=== PATIENT | male | born 1960 | race Caucasian/White ===

== ENCOUNTER 2017-03-28 15:15 | Inpatient (IN) | payer BC ==
[2017-03-28] MEDS ORDERED: Sodium Chloride 0.9% 10 ML Syringe FLUSH PRN (15:34)
[2017-03-28] MEDS ORDERED: Sodium Chloride 0.9% 2.5 ML Syringe FLUSH PRN (15:34)
[2017-03-28] MEDS ORDERED: Morphine 2 MG/ML Syringe IVPUSH ONE (15:35)
--- NOTE | 2017-03-28 15:37 | EDM.PDOC ---
ED HPI GENERAL MEDICAL PROBLEM - General Chief Complaint: Lower Extremity Injury/Pain Stated Complaint: PAIN LT KNEE Time Seen by Provider: 03/28/17 15:31 Source of Information: Reports: Patient History Limitations: Reports: No Limitations - History of Present Illness INITIAL COMMENTS - FREE TEXT/NARRATIVE: History of present illness: []Patient felt something sticking in his left knee and try to pull it out a few days ago knee has become red hot and tender. He denies having any fevers or chills and is ambulatory with pain. Patient's been told he has high blood pressure not want take meds for it. His currently has elevated blood pressure of 190's/130s but denies any headache, chest pain or change in vision. Review of systems: As per history of present illness and below otherwise all systems reviewed and negative. Past medical history: As per history of present illness and as reviewed below otherwise noncontributory. Surgical history: As per history of present illness and as reviewed below otherwise noncontributory. Social history: No reported history of drug or alcohol abuse. Family history: As per history of present illness and as reviewed below otherwise noncontributory. Physical exam: General: Well developed, well nourished in NAD HEENT: Atraumatic, normocephalic, pupils reactive, negative for conjunctival pallor or scleral icterus, mucous membranes moist, throat clear, neck supple, nontender, trachea midline. Lungs: Clear to auscultation, breath sounds equal bilaterally, chest nontender. Heart: S1S2, regular, negative for clicks, rubs, or JVD. Abdomen: Soft, nondistended, nontender. Negative for masses or hepatosplenomegaly. Negative for costovertebral tenderness. Pelvis: Stable nontender. Genitourinary: Deferred. Rectal: Deferred. Extremities: Atraumatic, negative for cords or calf pain. Neurovascular unremarkable. Neuro: Awake, alert, oriented. Cranial nerves II through XII unremarkable. Cerebellum unremarkable. Motor and sensory unremarkable throughout. Exam nonfocal. Diagnostics: []X-ray labs and blood cultures done done Therapeutics: []Pain meds Impression: []Left knee cellulitis with possible early septic arthritis, uncontrolled hypertension Plan: []Dr. Quijano was consulted and will evaluate this patient a deep. Definitive disposition and diagnosis as appropriate pending reevaluation and review of above. left leg Pain Score (Numeric/FACES): 7 - Related Data Allergies Allergy/AdvReac Type Severity Reaction Status Date / Time No Known Allergies Allergy Verified 03/28/17 15:26 Home Meds: Home Meds . [No Known Home Meds] 03/28/17 [History] Past Medical History - Past Health History Medical/Surgical History: Denies Medical/Surgical History HEENT History: Reports: None Cardiovascular History: Reports: Hypertension Respiratory History: Reports: None Genitourinary History: Reports: None Musculoskeletal History: Reports: None Neurological History: Reports: None Psychiatric History: Reports: None Endocrine/Metabolic History: Reports: None Hematologic History: Reports: None Other Immunologic History: Spleen Removed in 2011 Oncologic (Cancer) History: Reports: None Dermatologic History: Reports: None - Infectious Disease History Infectious Disease History: Reports: Chicken Pox - Past Surgical History Head Surgeries/Procedures: Reports: None GI Surgical History: Reports: Other (See Below) Male Surgical History: Reports: None Social & Family History - Family History Family Medical History: Noncontributory - Tobacco Use Smoking Status *Q: Current Every Day Smoker Years of Tobacco use: 30 Packs/Tins Daily: 0.5 Used Tobacco, but Quit: No - Caffeine Use Caffeine Use: Reports: Coffee, Soda - Recreational Drug Use Recreational Drug Use: No Review of Systems - Review of Systems Review Of Systems: See Below (See history of present illness) ED EXAM, GENERAL - Physical Exam Exam: See Below (See history of present illness) Course - Vital Signs Last Recorded V/S: Last Vital Signs Temp 98.8 F 03/29/17 04:30 Pulse 90 03/29/17 04:30 Resp 20 03/29/17 04:30 BP 168/88 H 03/29/17 04:30 Pulse Ox 96 03/29/17 04:30 - Orders/Labs/Meds Orders: Active Orders 24 hr Category Date Time Status Patient Status [ADT] Stat ADT 03/28/17 17:15 Active CULTURE BLOOD [BC] Stat Lab 03/28/17 15:44 Received CULTURE BLOOD [BC] Stat Lab 03/28/17 15:49 Received Sodium Chloride 0.9% [Saline Flush] Med 03/28/17 15:34 Active 10 ml FLUSH ASDIRECTED PRN Sodium Chloride 0.9% [Saline Flush] Med 03/28/17 15:34 Active 2.5 ml FLUSH ASDIRECTED PRN Blood Culture x2 Reflex Set [OM.PC] Stat Oth 03/28/17 15:34 Ordered Saline Lock Insert [OM.PC] Stat Ot 03/28/17 15:34 Ordered Medication Orders Acetaminophen (Tylenol) 650 mg PO Q4H PRN PRN Reason: Pain (Mild 1-3)/fever Bisacodyl (Dulcolax) 5 mg PO DAILY PRN PRN Reason: Constipation Docusate Sodium (Colace) 100 mg PO BID PRN PRN Reason: Constipation Enoxaparin Sodium (Lovenox) 40 mg SUBCUT DAILY [facility] Vancomycin HCl 1.5 gm/ Sodium (Chloride) 500 mls @ 333.333 mls/hr IV Q12H [facility] Last Admin: 03/29/17 02:31 Dose: 333.333 mls/hr Lisinopril (Prinivil) 10 mg PO BID [facility] Last Admin: 03/28/17 21:02 Dose: 10 mg Ondansetron HCl (Zofran Odt) 4 mg PO Q4H PRN PRN Reason: nausea, able to take PO Sodium Chloride (Saline Flush) 10 ml FLUSH ASDIRECTED PRN PRN Reason: Keep Vein Open Last Admin: 03/28/17 15:49 Dose: 10 ml Sodium Chloride (Saline Flush) 2.5 ml FLUSH ASDIRECTED PRN PRN Reason: Keep Vein Open Last Admin: 03/28/17 15:49 Dose: 2.5 ml Temazepam (Restoril) 15 mg PO BEDTIME PRN PRN Reason: Sleep Vancomycin HCl (Pharmacy To Dose - Vancomycin) 1 dose .XX ASDIRECTED [facility] Labs: Laboratory Tests 03/28/17 03/28/17 Range/Units 15:44 15:44 WBC 18.19 H (4.0-11.0) K/uL RBC 5.55 (4.50-5.90) M/uL Hgb 16.0 (13.0-17.0) g/dL Hct 46.9 (38.0-50.0) % MCV 84.5 (80.0-98.0) fL MCH 28.8 (27.0-32.0) pg MCHC 34.1 (31.0-37.0) g/dL RDW Std Deviation 42.6 (28.0-62.0) fl RDW Coeff of Whit 14 (11.0-15.0) % Plt Count 354 (150-400) K/uL MPV 9.40 (7.40-12.00) fL Neut % (Auto) 72.2 (48.0-80.0) % Lymph % (Auto) 16.3 (16.0-40.0) % [place] % (Auto) 10.7 (0.0-15.0) % Eos % (Auto) 0.5 (0.0-7.0) % Baso % (Auto) 0.3 (0.0-1.5) % Neut # (Auto) 13.1 H (1.4-5.7) K/uL Lymph # (Auto) 3.0 H (0.6-2.4) K/uL [place] # (Auto) 2.0 H (0.0-0.8) K/uL Eos # (Auto) 0.1 (0.0-0.7) K/uL Baso # (Auto) 0.1 (0.0-0.1) K/uL Nucleated RBC % 0.0 /100WBC Nucleated RBCs # 0 K/uL ESR 5 (0-19) mm/hr Sodium 137 (136-146) mmol/L Potassium 4.4 (3.5-5.1) mmol/L Chloride 100 (98-110) mmol/L Carbon Dioxide 26 (21-31) mmol/L BUN 13 (6.0-23.0) mg/dL Creatinine 1.3 (0.6-1.5) mg/dL Est Cr Clr Drug Dosing 58.61 mL/min Estimated GFR (MDRD) 56.9 ml/min Glucose 139 H (60-110) mg/dL Calcium 9.9 (8.8-10.8) mg/dL Total Bilirubin 0.5 (0.1-1.5) mg/dL AST 16 (5-40) IU/L ALT 25 (8-54) IU/L Alkaline Phosphatase 121 (40-150) C-Reactive Protein 2.98 H (0.0-0.5) mg/dL Total Protein 7.7 (6.0-8.0) g/dL Albumin 4.2 (3.5-5.0) g/dL Globulin 3.5 (2.0-3.5) g/dL Albumin/Globulin Ratio 1.20 Meds: Medications Generic Name Dose Route Start Last Admin Trade Name Gina PRN Reason Stop Dose Admin Acetaminophen 650 mg 03/28/17 18:01 Tylenol PO Q4H PRN Pain (Mild 1-3)/fever Bisacodyl 5 mg 03/28/17 18:01 Dulcolax PO DAILY PRN Constipation Docusate Sodium 100 mg 03/28/17 18:01 Colace PO BID PRN Constipation Enoxaparin Sodium 40 mg 03/29/17 09:00 Lovenox SUBCUT DAILY [facility] Vancomycin HCl 1.5 gm/ Sodium 500 mls @ 333.333 mls/hr 03/29/17 02:00 02:31 Chloride IV 333.333 mls/hr Q12H [facility] Administration Lisinopril 10 mg 03/28/17 21:00 03/28/17 21:02 Prinivil PO 10 mg BID [facility] Administration Ondansetron HCl 4 mg 03/28/17 18:01 Zofran Odt PO Q4H PRN nausea, able to take PO Sodium Chloride 10 ml 03/28/17 15:34 03/28/17 15:49 Saline Flush FLUSH 10 ml ASDIRECTED PRN Administration Keep Vein Open Sodium Chloride 2.5 ml 03/28/17 15:34 03/28/17 15:49 Saline Flush FLUSH 2.5 ml ASDIRECTED PRN Administration Keep Vein Open Temazepam 15 mg 03/28/17 18:01 Restoril PO BEDTIME PRN Sleep Vancomycin HCl 1 dose 03/28/17 18:15 Pharmacy To Dose - Vancomycin .XX ASDIRECTED [facility] Discontinued Medications Generic Name Dose Route Start Last Admin Trade Name Gina PRN Reason Stop Dose Admin Diphtheria/Tetanus/Acell Pertussis 0.5 ml 03/28/17 18:04 Adacel IM 03/28/17 18:05 .ONCE ONE Vancomycin HCl 1 gm/ Sodium 250 mls @ 250 mls/hr 03/28/17 16:28 03/28/17 16: 47 Chloride IV 03/28/17 17:27 250 mls/hr ONETIME ONE Administration Metoprolol Tartrate 5 mg 03/28/17 16:01 03/28/17 16:10 Lopressor IVPUSH 03/28/17 16:02 5 mg ONETIME ONE Administration Morphine Sulfate 4 mg 03/28/17 15:35 03/28/17 15:49 Morphine IVPUSH 03/28/17 15:36 4 mg ONETIME ONE Administration Departure - Departure Time of Disposition: 17:50 Disposition: Admitted As Inpatient 65 Condition: Good Clinical Impression: Cellulitis of left knee - Discharge Information - My Orders Last 24 Hours: My Active Orders 03/28/17 15:34 Sodium Chloride 0.9% [Saline Flush] 10 ml FLUSH ASDIRECTED PRN Sodium Chloride 0.9% [Saline Flush] 2.5 ml FLUSH ASDIRECTED PRN Blood Culture x2 Reflex Set [OM.PC] Stat Saline Lock Insert [OM.PC] Stat 03/28/17 15:44 CULTURE BLOOD [BC] Stat 03/28/17 15:49 CULTURE BLOOD [BC] Stat 03/28/17 17:15 Patient Status [ADT] Stat - Assessment/Plan Last 24 Hours: My Active Orders 03/28/17 15:34 Sodium Chloride 0.9% [Saline Flush] 10 ml FLUSH ASDIRECTED PRN Sodium Chloride 0.9% [Saline Flush] 2.5 ml FLUSH ASDIRECTED PRN Blood Culture x2 Reflex Set [OM.PC] Stat Saline Lock Insert [OM.PC] Stat 03/28/17 15:44 CULTURE BLOOD [BC] Stat 03/28/17 15:49 CULTURE BLOOD [BC] Stat 03/28/17 17:15 Patient Status [ADT] Stat
[2017-03-28] MEDS ORDERED: Metoprolol Tartrate 5 MG in Sodium Chloride 0.9% 50 ML IV ONE (15:51)
[2017-03-28] MEDS ORDERED: Metoprolol Tartrate 5 MG/5 ML SDV IVPUSH ONE (16:01)
--- NOTE | 2017-03-28 17:21 | CR ---
EXAM DATE: 03/28/17 PATIENT'S AGE: 56 Patient: MENA JOHNSON Facility: [place], [place] Site . Site : 1960 Study: XRay Knee [id number] 4:32:15 PM Ordering Physician: Alfonso Carranza Final Report: INDICATION: Pain, redness and swelling. COMPARISON: none TECHNIQUE: Three view left knee FINDINGS: There is localized soft tissue swelling within the anterior medial region. There is no evidence of a radiopaque foreign body. The bones are anatomically aligned. There is no evidence of fracture, erosion or intrinsic bone lesion. There is an air crescent within the medial joint space. This may reflect recent forceful joint distraction. IMPRESSION: No fracture identified. Soft tissue swelling within the prepatellar region and air crescent sign noted which may indicate recent dated joint destruction Dictated by Nikos Henriquez MD @ Mar 28 2017 4:40PM (Electronic Signature) Report Signed by Proxy. TRISTEN
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
[2017-03-28] MEDS ORDERED: Docusate Sodium 100 MG Cap PO PRN (18:01)
[2017-03-28] MEDS ORDERED: Bisacodyl 5 MG Tab PO PRN (18:01)
[2017-03-28] MEDS ORDERED: Ondansetron 4 MG Tab.DIS PO PRN (18:01)
[2017-03-28] MEDS ORDERED: Temazepam 15 MG Cap PO PRN (18:01)
[2017-03-28] MEDS ORDERED: Diphtheria,Pertussis(Acell),Tetanus Vaccine 0.5 ML Syringe IM ONE (18:04)
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
[2017-03-28] MEDS: Lisinopril 10 MG Tab PO SCH (21:02)
--- NOTE | 2017-03-28 23:22 | CONS ---
DATE OF CONSULTATION: DATE OF : 1960 PRIMARY CARE PHYSICIAN: None PCP REASON FOR CONSULT: Left knee swelling. HISTORY OF PRESENT ILLNESS: The patient is a 56-year-old male who began having increased swelling in his left knee approximately 3 days prior. He cannot recall a specific injury; however, he states that he does do a lot of kneeling and crawling on his knees. He noticed a small pustule over the anterior aspect of his knee. Over the past day, he states that the swelling has increased along with the pain. He has no previous history of knee pain or injury. He denies any fever or chills. He denies distal paralysis or paresthesias. PAST MEDICAL HISTORY: Hypertension. PAST SURGICAL HISTORY: Hernia repair. MEDICATIONS: None. SOCIAL HISTORY: He admits to daily tobacco use. He denies recreational drug use. FAMILY HISTORY: Noncontributory. REVIEW OF SYSTEMS: He denies recent fever, chills, cough, shortness of breath, chest pain, nausea, or vomiting. PHYSICAL EXAMINATION: VITAL SIGNS: Blood pressure 162/107, pulse 80, respirations 18, O2 saturation is 98% on room air. GENERAL: This is alert, well-nourished male who is lying on ER stretcher in minimal distress. HEENT: Head is normocephalic, atraumatic. NECK: Supple. CHEST: Showed symmetrical excursions, unlabored. HEART: Regular rate. EXTREMITIES: Exam of the left knee shows obvious swelling in the prepatellar bursa region. Mild erythema is present. There is a small pustule noted over the patella tendon. No fluctuance is noted. Range of motion of the knee is 0- 115 degrees. He is stable to varus and valgus stressing. His patella tracked centrally. No joint effusion is noted. He has no calf tenderness. Anterior tib, EHL, gastroc strength is 5/5. Dorsalis pedis pulses 2+. Sensation is grossly intact throughout the lower extremity. He has no pain with passive hip motion. IMAGING: X-rays of the left knee were reviewed. This does show localized soft tissue swelling in the prepatellar region. An air crescent is present within the medial joint space, which may reflect a recent forceful joint distraction. This does not appear to be due to a gas-forming organism. ASSESSMENT: Left prepatellar bursitis. PLAN: At this time, the patient will be admitted by the hospitalist for IV antibiotics. We will follow him clinically. At this time, no surgical intervention is indicated. If his symptoms increase, we will plan on further discussion of surgical intervention. Blood cultures were also obtained in the emergency room. BLAKE ADAMS /[id number]
[2017-03-29] MEDS: Vancomycin 1.5 GM in Sodium Chloride 0.9% 500 ML IV SCH ×2 (02:31→13:17)
[2017-03-29 05:58] LABS: CHLORIDE,CL 102 mmol/L (98-110); SODIUM,NA 138 mmol/L (136-146)
--- NOTE | 2017-03-29 08:08 | PCM.PN ---
- General Info Date of Service: 03/29/17 Admission Dx/Problem (Free Text): Admission Diagnosis/Problem Cellulitis of L knee Subjective Update: Reports feeling pressure to L knee, pain is 4/10 now, hurts worse when ambulating on it. Denies chest pain or SOB, having more general malaise. Functional Status: Reports: Tolerating Diet, Ambulating, Urinating. Denies: Pain Controlled - Review of Systems General: Reports: Malaise. Denies: Fever HEENT: Reports: No Symptoms. Denies: Ear Pain, Headaches, Sore Throat, Visual Changes Pulmonary: Reports: No Symptoms. Denies: Shortness of Breath, Cough, Sputum Cardiovascular: Reports: No Symptoms. Denies: Chest Pain, Palpitations, Edema Gastrointestinal: Reports: No Symptoms. Denies: Abdominal Pain, Nausea, Vomiting Musculoskeletal: Reports: Joint Pain (L knee, anterior) Neurological: Reports: No Symptoms Psychiatric: Reports: No Symptoms - Patient Data Vitals - Most Recent: Last Vital Signs Temp 98.8 F 03/29/17 04:30 Pulse 90 03/29/17 04:30 Resp 20 03/29/17 04:30 BP 168/88 H 03/29/17 04:30 Pulse Ox 96 03/29/17 04:30 Weight - Most Recent: 96.4 kg I&O - Last 24 Hours: Intake & Output 03/28/17 03/29/17 03/29/17 22:59 06:59 14:59 Intake Total 1250 Output Total 400 Balance 850 Lab Results Last 24 Hours: Laboratory Results - last 24 hr 03/29/17 03/29/17 Range/Units 04:45 04:45 WBC 16.74 H (4.0-11.0) K/uL RBC 5.03 (4.50-5.90) M/uL Hgb 14.3 (13.0-17.0) g/dL Hct 43.1 (38.0-50.0) % MCV 85.7 (80.0-98.0) fL MCH 28.4 (27.0-32.0) pg MCHC 33.2 (31.0-37.0) g/dL RDW Std Deviation 43.4 (28.0-62.0) fl RDW Coeff of Whit 14 (11.0-15.0) % Plt Count 335 (150-400) K/uL MPV 9.80 (7.40-12.00) fL Add Manual Diff YES Neutrophils % (Manual) 69 (48.0-80.0) % Band Neutrophils % 1 % Lymphocytes % (Manual) 18 (16.0-40.0) % Monocytes % (Manual) 10 (0.0-15.0) % Eosinophils % (Manual) 1 (0.0-7.0) % Basophils % (Manual) 1 (0.0-1.5) % Nucleated RBC % 0.0 /100WBC Absolute Seg Neuts 11.6 H (1.4-5.7) Band Neutrophils # 0.2 Lymphocytes # (Manual) 3.0 H (0.6-2.4) Monocytes # (Manual) 1.7 H (0.0-0.8) Eosinophils # (Manual) 0.2 (0.0-0.7) Basophils # (Manual) 0.2 H (0.0-0.1) Nucleated RBCs # 0 K/uL Sodium 138 (136-146) mmol/L Potassium 4.4 (3.5-5.1) mmol/L Chloride 102 (98-110) mmol/L Carbon Dioxide 28 (21-31) mmol/L BUN 12 (6.0-23.0) mg/dL Creatinine 1.1 (0.6-1.5) mg/dL Est Cr Clr Drug Dosing 69.27 mL/min Estimated GFR (MDRD) > 60.0 ml/min Glucose 110 (60-110) mg/dL Calcium 8.8 (8.8-10.8) mg/dL Magnesium 1.8 (1.5-2.3) mEq/L Med Orders - Current: Current Medications Acetaminophen (Tylenol) 650 mg PO Q4H PRN PRN Reason: Pain (Mild 1-3)/fever Bisacodyl (Dulcolax) 5 mg PO DAILY PRN PRN Reason: Constipation Docusate Sodium (Colace) 100 mg PO BID PRN PRN Reason: Constipation Enoxaparin Sodium (Lovenox) 40 mg SUBCUT DAILY [facility] Vancomycin HCl 1.5 gm/ Sodium (Chloride) 500 mls @ 333.333 mls/hr IV Q12H [facility] Last Admin: 03/29/17 02:31 Dose: 333.333 mls/hr Lisinopril (Prinivil) 10 mg PO BID [facility] Last Admin: 03/28/17 21:02 Dose: 10 mg Ondansetron HCl (Zofran Odt) 4 mg PO Q4H PRN PRN Reason: nausea, able to take PO Sodium Chloride (Saline Flush) 10 ml FLUSH ASDIRECTED PRN PRN Reason: Keep Vein Open Last Admin: 03/28/17 15:49 Dose: 10 ml Sodium Chloride (Saline Flush) 2.5 ml FLUSH ASDIRECTED PRN PRN Reason: Keep Vein Open Last Admin: 03/28/17 15:49 Dose: 2.5 ml Temazepam (Restoril) 15 mg PO BEDTIME PRN PRN Reason: Sleep Vancomycin HCl (Pharmacy To Dose - Vancomycin) 1 dose .XX ASDIRECTED [facility] Discontinued Medications Diphtheria/Tetanus/Acell Pertussis (Adacel) 0.5 ml IM .ONCE ONE Stop: 03/28/17 18:05 Vancomycin HCl 1 gm/ Sodium (Chloride) 250 mls @ 250 mls/hr IV ONETIME ONE Stop: 03/28/17 17:27 Last Admin: 03/28/17 16:47 Dose: 250 mls/hr Metoprolol Tartrate (Lopressor) 5 mg IVPUSH ONETIME ONE Stop: 03/28/17 16:02 Last Admin: 03/28/17 16:10 Dose: 5 mg Morphine Sulfate (Morphine) 4 mg IVPUSH ONETIME ONE Stop: 03/28/17 15:36 Last Admin: 03/28/17 15:49 Dose: 4 mg - Exam General: Alert, Oriented, Cooperative, No Acute Distress Neck: Supple Lungs: Clear to Auscultation, Normal Respiratory Effort Cardiovascular: Regular Rate, Regular Rhythm GI/Abdominal Exam: Normal Bowel Sounds, Soft, Non-Tender, No Organomegaly, No Distention, No Abnormal Bruit, No Mass, Pelvis Stable Extremities: No: Normal Range of Motion (pain limits movement of L knee somewhat.) Wound/Incisions: Erythema Improving (abrasion over tibial tubercle, with surrounding erythema. Some pain with movement and ambulating. Feels a lot of pressure No drainage. Some swelling noted above knee withour erythema.) Neurological: No New Focal Deficit Psy/Mental Status: Alert, Normal Affect, Normal Mood - Problem List & Annotations (1) Cellulitis of left knee SNOMED Code(s): 43744396 Code(s): L03.116 - CELLULITIS OF LEFT LOWER LIMB Status: Acute Current Visit: Yes (2) Asplenia SNOMED Code(s): 989678647 Code(s): Q89.01 - ASPLENIA (CONGENITAL) Status: Chronic Current Visit: Yes (3) Hypertension SNOMED Code(s): 51122941 Code(s): I10 - ESSENTIAL (PRIMARY) HYPERTENSION Status: Chronic Current Visit: Yes Qualifiers: Hypertension type: essential hypertension Qualified Code(s): I10 - Essential (primary) hypertension - Problem List Review Problem List Initiated/Reviewed/Updated: Yes - Plan Plan:: This 56 year old male admitted with L knee cellulitis 1. L knee cellulitis: Slight improvement. Leukocytosis improved to 16,000. Continue Vancomycin, in discussion with Dr. Hong will add Zosyn for gram negative coverage due to hx of asplenia. Dr. Quijano consulted, no surgical intervention at this time. We appreciate her recommendations. Will add [place] for pain control and monitor. Keep L leg elevated. 2. HTN: remains elevated, Lisinopril 10 mg BID. Will monitor. may be related to pain. 3. Asplenia: Monitor. Adding further coverage for cellulitis as above. VTE prophylaxis: Lovenox. Dispo: 2-3 days pending improvement.
[2017-03-29] MEDS: Lisinopril 10 MG Tab PO SCH ×2 (08:43→21:16)
[2017-03-29] MEDS: Acetaminophen 325 MG Tab PO PRN (08:43)
[2017-03-29] MEDS ORDERED: Diphtheria,Pertussis(Acell),Tetanus Vaccine 0.5 ML Syringe IM ONE (08:45)
--- NOTE | 2017-03-29 08:45 | PCM.SN ---
<Selma Jarrell R - Last Filed: 03/29/17 08:42> - Free Text/Narrative Note: pt resting comfortably in bed states pain isn't too bad this morning some aching in the anterior knee denies fevers, chills, painful ROM at L knee vss, afeb (consistently hypertensive) WBC down to 16.74, no repeat ESR or CRP exam L knee reveals abrasion over tibial tubercle minimally tender with palpation, some surrounding erythema no drainage, induration ROM 0-120 septic pre-patellar bursitis continue IV vancomycin continue pain control activity as tolerated will continue to follow during stay <Pat Quijanoanne R - Last Filed: 03/29/17 17:00> - Free Text/Narrative Note: 1300 Patient seen and examined. Agree with above note. Patient states that his pain has improved slightly. He continues to complain of pain over the anterior aspect of the knee. He denies any fever or chills. Exam of the left knee shows the abrasion over the tibial tubercle. He does have surrounding erythema with mild fluctuance. No drainage is noted. Range of motion of the knee is 0-120. No calf tenderness. AT/EHL/gastroc 5/5. Sensation grossly intact. DP/PT pulses 2+. 1. Continue conservative management 2. Antibiotics per the hospitalist 3. Activity as tolerated 4. WBC count improving. Recheck tomorrow along with ESR and CRP
[2017-03-29] MEDS: Enoxaparin 40 MG/0.4 ML Syringe SUBCUT SCH (08:55)
[2017-03-29] MEDS: Piperacillin/Tazobactam 3.375 GM in Sodium Chloride 0.9% 50 ML IV SCH ×3 (09:52→21:17)
[2017-03-29] MEDS: Acetaminophen/HYDROcodone 325-5 MG Tab PO PRN (17:34)
[2017-03-30] MEDS: Vancomycin 1.5 GM in Sodium Chloride 0.9% 500 ML IV SCH ×2 (01:36→15:16)
[2017-03-30] MEDS: Acetaminophen/HYDROcodone 325-5 MG Tab PO PRN ×3 (01:36→21:34)
[2017-03-30] MEDS: Piperacillin/Tazobactam 3.375 GM in Sodium Chloride 0.9% 50 ML IV SCH ×4 (03:21→20:36)
[2017-03-30 05:40] LABS: CHLORIDE,CL 105 mmol/L (98-110); SODIUM,NA 137 mmol/L (136-146)
[2017-03-30] MEDS: Enoxaparin 40 MG/0.4 ML Syringe SUBCUT SCH (08:39)
[2017-03-30] MEDS: Lisinopril 10 MG Tab PO SCH ×2 (08:45→20:35)
--- NOTE | 2017-03-30 09:00 | PCM.PN ---
- General Info Date of Service: 03/30/17 Admission Dx/Problem (Free Text): Admission Diagnosis/Problem Cellulitis of L knee Subjective Update: Reports "This needs to be drained." Reports pain is about the same, but pressure is increasing. He reports inability to walk due to pain. He is able to move knee well, with some pain. Denies chest pain or SOB. No fevers overnight. Continues to have some malaise Functional Status: Reports: Pain Controlled, Tolerating Diet, Urinating - Review of Systems General: Reports: Malaise. Denies: Fever HEENT: Reports: No Symptoms. Denies: Headaches, Sore Throat Pulmonary: Reports: No Symptoms. Denies: Shortness of Breath, Cough, Sputum Cardiovascular: Reports: No Symptoms. Denies: Chest Pain, Palpitations, Edema Gastrointestinal: Reports: No Symptoms. Denies: Abdominal Pain, Nausea, Vomiting Genitourinary: Reports: No Symptoms. Denies: Dysuria, Frequency, Burning Musculoskeletal: Reports: Joint Pain (L knee). Denies: Neck Pain, Shoulder Pain Neurological: Reports: No Symptoms. Denies: Confusion Psychiatric: Reports: No Symptoms. Denies: Confusion - Patient Data Vitals - Most Recent: Last Vital Signs Temp 97.1 F 03/30/17 04:00 Pulse 80 03/30/17 04:00 Resp 16 03/30/17 04:00 BP 128/81 03/30/17 08:45 Pulse Ox 95 03/30/17 04:00 Weight - Most Recent: 96.4 kg I&O - Last 24 Hours: Intake & Output 03/29/17 03/30/17 03/30/17 22:59 06:59 14:59 Intake Total 930 1230 Balance 930 1230 Lab Results Last 24 Hours: Laboratory Results - last 24 hr 03/30/17 03/30/17 03/30/17 Range/Units 05:10 05:10 05:10 WBC 16.39 H (4.0-11.0) K/uL RBC 4.81 (4.50-5.90) M/uL Hgb 13.6 (13.0-17.0) g/dL Hct 41.1 (38.0-50.0) % MCV 85.4 (80.0-98.0) fL MCH 28.3 (27.0-32.0) pg MCHC 33.1 (31.0-37.0) g/dL RDW Std Deviation 43.2 (28.0-62.0) fl RDW Coeff of Whit 14 (11.0-15.0) % Plt Count 293 (150-400) K/uL MPV 9.10 (7.40-12.00) fL Neut % (Auto) 64.3 (48.0-80.0) % Lymph % (Auto) 19.9 (16.0-40.0) % [place] % (Auto) 13.7 (0.0-15.0) % Eos % (Auto) 1.6 (0.0-7.0) % Baso % (Auto) 0.5 (0.0-1.5) % Neut # (Auto) 10.5 H (1.4-5.7) K/uL Lymph # (Auto) 3.3 H (0.6-2.4) K/uL [place] # (Auto) 2.3 H (0.0-0.8) K/uL Eos # (Auto) 0.3 (0.0-0.7) K/uL Baso # (Auto) 0.1 (0.0-0.1) K/uL Nucleated RBC % 0.0 /100WBC Nucleated RBCs # 0 K/uL ESR 20 H (0-19) mm/hr Sodium 137 (136-146) mmol/L Potassium 4.7 (3.5-5.1) mmol/L Chloride 105 (98-110) mmol/L Carbon Dioxide 25 (21-31) mmol/L BUN 14 (6.0-23.0) mg/dL Creatinine 1.0 (0.6-1.5) mg/dL Est Cr Clr Drug Dosing 76.20 mL/min Estimated GFR (MDRD) > 60.0 ml/min Glucose 105 (60-110) mg/dL Calcium 8.4 L (8.8-10.8) mg/dL C-Reactive Protein (0.0-0.5) mg/dL 03/30/17 Range/Units 05:10 WBC (4.0-11.0) K/uL RBC (4.50-5.90) M/uL Hgb (13.0-17.0) g/dL Hct (38.0-50.0) % MCV (80.0-98.0) fL MCH (27.0-32.0) pg MCHC (31.0-37.0) g/dL RDW Std Deviation (28.0-62.0) fl RDW Coeff of Whit (11.0-15.0) % Plt Count (150-400) K/uL MPV (7.40-12.00) fL Neut % (Auto) (48.0-80.0) % Lymph % (Auto) (16.0-40.0) % [place] % (Auto) (0.0-15.0) % Eos % (Auto) (0.0-7.0) % Baso % (Auto) (0.0-1.5) % Neut # (Auto) (1.4-5.7) K/uL Lymph # (Auto) (0.6-2.4) K/uL [place] # (Auto) (0.0-0.8) K/uL Eos # (Auto) (0.0-0.7) K/uL Baso # (Auto) (0.0-0.1) K/uL Nucleated RBC % /100WBC Nucleated RBCs # K/uL ESR (0-19) mm/hr Sodium (136-146) mmol/L Potassium (3.5-5.1) mmol/L Chloride (98-110) mmol/L Carbon Dioxide (21-31) mmol/L BUN (6.0-23.0) mg/dL Creatinine (0.6-1.5) mg/dL Est Cr Clr Drug Dosing mL/min Estimated GFR (MDRD) ml/min Glucose (60-110) mg/dL Calcium (8.8-10.8) mg/dL C-Reactive Protein 12.76 H (0.0-0.5) mg/dL Med Orders - Current: Current Medications Acetaminophen (Tylenol) 650 mg PO Q4H PRN PRN Reason: Pain (Mild 1-3)/fever Last Admin: 03/29/17 08:43 Dose: 650 mg Hydrocodone Bitart/Acetaminophen ([place] 325-5 Mg) 1 - 2 tab PO Q4H PRN PRN Reason: Pain Last Admin: 03/30/17 01:36 Dose: 2 tab Bisacodyl (Dulcolax) 5 mg PO DAILY PRN PRN Reason: Constipation Docusate Sodium (Colace) 100 mg PO BID PRN PRN Reason: Constipation Enoxaparin Sodium (Lovenox) 40 mg SUBCUT DAILY [facility] Last Admin: 03/30/17 08:39 Dose: 40 mg Vancomycin HCl 1.5 gm/ Sodium (Chloride) 500 mls @ 333.333 mls/hr IV Q12H [facility] Last Infusion: 03/30/17 03:19 Dose: Infused Piperacillin Sod/Tazobactam (Sod 3.375 gm/ Sodium Chloride) 50 mls @ 100 mls/ hr IV Q6H [facility] Last Admin: 03/30/17 08:33 Dose: 100 mls/hr Lisinopril (Prinivil) 10 mg PO BID [facility] Last Admin: 03/30/17 08:45 Dose: 10 mg Ondansetron HCl (Zofran Odt) 4 mg PO Q4H PRN PRN Reason: nausea, able to take PO Sodium Chloride (Saline Flush) 10 ml FLUSH ASDIRECTED PRN PRN Reason: Keep Vein Open Last Admin: 03/28/17 15:49 Dose: 10 ml Sodium Chloride (Saline Flush) 2.5 ml FLUSH ASDIRECTED PRN PRN Reason: Keep Vein Open Last Admin: 03/28/17 15:49 Dose: 2.5 ml Temazepam (Restoril) 15 mg PO BEDTIME PRN PRN Reason: Sleep Vancomycin HCl (Pharmacy To Dose - Vancomycin) 1 dose .XX ASDIRECTED [facility] Discontinued Medications Diphtheria/Tetanus/Acell Pertussis (Adacel) 0.5 ml IM .ONCE ONE Stop: 03/28/17 18:05 Last Admin: 03/29/17 11:30 Dose: Not Given Diphtheria/Tetanus/Acell Pertussis (Adacel) 0.5 ml IM .ONCE ONE Stop: 03/29/17 08:46 Last Admin: 03/29/17 08:54 Dose: 0.5 ml Vancomycin HCl 1 gm/ Sodium (Chloride) 250 mls @ 250 mls/hr IV ONETIME ONE Stop: 03/28/17 17:27 Last Admin: 03/28/17 16:47 Dose: 250 mls/hr Metoprolol Tartrate (Lopressor) 5 mg IVPUSH ONETIME ONE Stop: 03/28/17 16:02 Last Admin: 03/28/17 16:10 Dose: 5 mg Morphine Sulfate (Morphine) 4 mg IVPUSH ONETIME ONE Stop: 03/28/17 15:36 Last Admin: 03/28/17 15:49 Dose: 4 mg - Exam General: Alert, Oriented, Cooperative, No Acute Distress Lungs: Clear to Auscultation, Normal Respiratory Effort Cardiovascular: Regular Rate, Regular Rhythm GI/Abdominal Exam: Normal Bowel Sounds, Soft, Non-Tender, No Organomegaly, No Distention, No Abnormal Bruit, No Mass, Pelvis Stable Extremities: Normal Inspection, Normal Range of Motion, No Pedal Edema, Normal Capillary Refill Wound/Incisions: Erythema (Slightly increased. More fluctuance noted today to abrasion on L knee tibial tubercle, area of purulence noted behind abrasion, no drainage. Knee joint feels more warm and firm today. ) Neurological: No New Focal Deficit Psy/Mental Status: Alert, Normal Affect, Normal Mood - Problem List & Annotations (1) Abscess SNOMED Code(s): 870774559 Code(s): L02.91 - CUTANEOUS ABSCESS, UNSPECIFIED Status: Acute Current Visit: Yes (2) Cellulitis of left knee SNOMED Code(s): 54143350 Code(s): L03.116 - CELLULITIS OF LEFT LOWER LIMB Status: Acute Current Visit: Yes (3) Asplenia SNOMED Code(s): 897696065 Code(s): Q89.01 - ASPLENIA (CONGENITAL) Status: Chronic Current Visit: Yes (4) Hypertension SNOMED Code(s): 35405891 Code(s): I10 - ESSENTIAL (PRIMARY) HYPERTENSION Status: Chronic Current Visit: Yes Qualifiers: Hypertension type: essential hypertension Qualified Code(s): I10 - Essential (primary) hypertension - Problem List Review Problem List Initiated/Reviewed/Updated: Yes - My Orders Last 24 Hours: My Active Orders 03/29/17 09:15 Acetaminophen/HYDROcodone [[place] 325-5 MG] 1 - 2 tab PO Q4H PRN 03/29/17 09:30 Piperacillin/Tazobactam [Piperacil-Tazobact] 3.375 gm Sodium Chloride 0.9% [ Normal Saline] 50 ml IV Q6H - Plan Plan:: This 56 year old male admitted with L knee cellulitis 1. L knee cellulitis: More fluctuance noted today. Leukocytosis remains 16,000. Continue Vancomycin and Zosyn. Dr. Quijano consulted. Selma DIAZ visited with patient this am and made NPO for possible I&D. Keep L leg elevated. 2. HTN: Improving. Lisinopril 10 mg BID. Will monitor 3. Asplenia: Monitor. VTE prophylaxis: Lovenox. Dispo: 2-3 days pending improvement.
--- NOTE | 2017-03-30 09:02 | PCM.SN ---
<CorazonSelma carlisle R - Last Filed: 03/30/17 08:59> - Free Text/Narrative Note: pt resting comfortably in bed states knee feels worse today denies systemic symptoms - fevers, chills, fatigue, malaise, nausea, CP increased pain with activity has not had anything to eat or drink yet this morning has been on IV vancomycin and zosyn (hx asplenia) vss, afeb WBC 16.3 ESR 20 CRP 12.76 exam LLE - pustule beneath anterior abrasion increasing erythema - demarcated with skin marker 2+ edema to level of knee ROM 0-90 limited by pain septic prepatellar bursitis keep NPO for now likely a surgical case at this point Dr Quijano to evaluate this morning <Lynnette Quijano R - Last Filed: 03/30/17 09:26> - Free Text/Narrative Note: 0900 Patient seen and examined. States knee pain is worse. Denies fever,chills. Labs and vitals as above. Exam of left knee show pustule over anterior patella tendon. Fluctuance over prepatellar bursae. Mild induration and erythema. No knee effusion. ROM 0-100 degrees with pain on full flexion. No calf TTP. NVI. With elevated WBC, CRP, ESR and clinical exam, I am recommending irrigation and debridement of the left prepatellar bursa. I discussed the procedure along with the post operative course with the patient. Risks of procedure include, but are not limited to, infection, n/v injury, stiffness, continued pain, and anesthetic complications. Patient agrees to proceed. Will plan to do later today. continue NPO. [email or web address]
[2017-03-30] MEDS ORDERED: ceFAZolin 2 GM in Premix Bag 1 BAG IV SCH (09:15)
[2017-03-30] MEDS ORDERED: Lidocaine 2% 5 ML SDV ONE (14:10)
[2017-03-30] MEDS ORDERED: Midazolam 1 MG/ML 2 ML SDV ONE (14:10)
[2017-03-30] MEDS ORDERED: fentaNYL 250 MCG/5 ML SDV ONE (14:10)
[2017-03-30] MEDS ORDERED: Propofol 200 MG/20 ML SDV ONE (14:10)
--- NOTE | 2017-03-30 14:31 | PCM.PREANE ---
Preanesthetic Assessment - Procedure Proposed Procedure: Left leg I and D - Anesthesia/Transfusion/Family Hx Anesthesia History: Prior Anesthesia Without Reaction Family History of Anesthesia Reaction: No Transfusion History: Prior Transfusion Without Reaction Intubation History: Unknown - Review of Systems General: Other (Pain ful left leg) Pulmonary: Other (smoker q day) Cardiovascular: Other (HTN) Gastrointestinal: No Symptoms Neurological: No Symptoms, Gait Disturbance (due to pain in left leg) - Physical Assessment NPO Status Date: 03/30/17 NPO Status Time: 07:00 Pulse: 92 O2 Sat by Pulse Oximetry: 96 Respiratory Rate: 16 Blood Pressure: 128/81 Vital Signs: Last Vital Signs Temp 98.3 F 03/30/17 12:00 Pulse 77 03/30/17 12:00 Resp 16 03/30/17 12:00 BP 137/84 03/30/17 12:00 Pulse Ox 96 03/30/17 12:00 Height: 5 ft 7 in Weight: 212 lb 8.41 oz ASA Class: 3 Mental Status: Alert & Oriented x3 Dentition: Reports: Normal Dentition Thyro-Mental Finger Breadths: 3 Mouth Opening Finger Breadths: 3 (moustache) ROM/Head Extension: Limited/Partial Lungs: Clear to Auscultation, Normal Respiratory Effort Cardiovascular: Regular Rate, Regular Rhythm - Lab Values: Laboratory Last Values WBC 16.39 K/uL (4.0-11.0) H 03/30/17 05:10 RBC 4.81 M/uL (4.50-5.90) 03/30/17 05:10 Hgb 13.6 g/dL (13.0-17.0) 03/30/17 05:10 Hct 41.1 % (38.0-50.0) 03/30/17 05:10 MCV 85.4 fL (80.0-98.0) 03/30/17 05:10 MCH 28.3 pg (27.0-32.0) 03/30/17 05:10 MCHC 33.1 g/dL (31.0-37.0) 03/30/17 05:10 RDW Std Deviation 43.2 fl (28.0-62.0) 03/30/17 05:10 RDW Coeff of Whit 14 % (11.0-15.0) 03/30/17 05:10 Plt Count 293 K/uL (150-400) 03/30/17 05:10 MPV 9.10 fL (7.40-12.00) 03/30/17 05:10 Neut % (Auto) 64.3 % (48.0-80.0) 03/30/17 05:10 Lymph % (Auto) 19.9 % (16.0-40.0) 03/30/17 05:10 Hart % (Auto) 13.7 % (0.0-15.0) 03/30/17 05:10 Eos % (Auto) 1.6 % (0.0-7.0) 03/30/17 05:10 Baso % (Auto) 0.5 % (0.0-1.5) 03/30/17 05:10 Neut # (Auto) 10.5 K/uL (1.4-5.7) H 03/30/17 05:10 Lymph # (Auto) 3.3 K/uL (0.6-2.4) H 03/30/17 05:10 Hart # (Auto) 2.3 K/uL (0.0-0.8) H 03/30/17 05:10 Eos # (Auto) 0.3 K/uL (0.0-0.7) 03/30/17 05:10 Baso # (Auto) 0.1 K/uL (0.0-0.1) 03/30/17 05:10 Add Manual Diff YES 03/29/17 04:45 Neutrophils % (Manual) 69 % (48.0-80.0) 03/29/17 04:45 Band Neutrophils % 1 % 03/29/17 04:45 Lymphocytes % (Manual) 18 % (16.0-40.0) 03/29/17 04:45 Monocytes % (Manual) 10 % (0.0-15.0) 03/29/17 04:45 Eosinophils % (Manual) 1 % (0.0-7.0) 03/29/17 04:45 Basophils % (Manual) 1 % (0.0-1.5) 03/29/17 04:45 Nucleated RBC % 0.0 /100WBC 03/30/17 05:10 Absolute Seg Neuts 11.6 (1.4-5.7) H 03/29/17 04:45 Band Neutrophils # 0.2 03/29/17 04:45 Lymphocytes # (Manual) 3.0 (0.6-2.4) H 03/29/17 04:45 Monocytes # (Manual) 1.7 (0.0-0.8) H 03/29/17 04:45 Eosinophils # (Manual) 0.2 (0.0-0.7) 03/29/17 04:45 Basophils # (Manual) 0.2 (0.0-0.1) H 03/29/17 04:45 Nucleated RBCs # 0 K/uL 03/30/17 05:10 ESR 20 mm/hr (0-19) H 03/30/17 05:10 Sodium 137 mmol/L (136-146) 03/30/17 05:10 Potassium 4.7 mmol/L (3.5-5.1) 03/30/17 05:10 Chloride 105 mmol/L (98-110) 03/30/17 05:10 Carbon Dioxide 25 mmol/L (21-31) 03/30/17 05:10 BUN 14 mg/dL (6.0-23.0) 03/30/17 05:10 Creatinine 1.0 mg/dL (0.6-1.5) 03/30/17 05:10 Est Cr Clr Drug Dosing 76.20 mL/min 03/30/17 05:10 Estimated GFR (MDRD) > 60.0 ml/min 03/30/17 05:10 Glucose 105 mg/dL (60-110) 03/30/17 05:10 Calcium 8.4 mg/dL (8.8-10.8) L 03/30/17 05:10 Magnesium 1.8 mEq/L (1.5-2.3) 03/29/17 04:45 Total Bilirubin 0.5 mg/dL (0.1-1.5) 03/28/17 15:44 AST 16 IU/L (5-40) 03/28/17 15:44 ALT 25 IU/L (8-54) 03/28/17 15:44 Alkaline Phosphatase 121 (40-150) 03/28/17 15:44 C-Reactive Protein 12.76 mg/dL (0.0-0.5) H 03/30/17 05:10 Total Protein 7.7 g/dL (6.0-8.0) 03/28/17 15:44 Albumin 4.2 g/dL (3.5-5.0) 03/28/17 15:44 Globulin 3.5 g/dL (2.0-3.5) 03/28/17 15:44 Albumin/Globulin Ratio 1.20 03/28/17 15:44 Vancomycin Trough 13.3 ug/mL (5-15) 03/30/17 13:17 - Allergies Allergies/Adverse Reactions: Allergies Allergy/AdvReac Type Severity Reaction Status Date / Time No Known Allergies Allergy Verified 03/28/17 15:26 - Blood Blood Available: No Product(s) Available: None - Acknowledgements Anesthesia Type Planned: General Anesthesia Pt an Appropriate Candidate for the Planned Anesthesia: Yes Alternatives and Risks of Anesthesia Discussed w Pt/Guardian: Yes Pt/Guardian Understands and Agrees with Anesthesia Plan: Yes PreAnesthesia Questionnaire - Past Health History Medical/Surgical History: Denies Medical/Surgical History HEENT History: Reports: None Cardiovascular History: Reports: Hypertension Respiratory History: Reports: None Gastrointestinal History: Denies: Cirrhosis Genitourinary History: Reports: None Musculoskeletal History: Reports: None Neurological History: Reports: None Psychiatric History: Reports: None Endocrine/Metabolic History: Reports: None Hematologic History: Reports: None Other Immunologic History: Spleen Removed in 2011 Oncologic (Cancer) History: Reports: None Dermatologic History: Reports: None - Infectious Disease History Infectious Disease History: Reports: Chicken Pox - Past Surgical History Head Surgeries/Procedures: Reports: None GI Surgical History: Reports: Other (See Below) Male Surgical History: Reports: None - SUBSTANCE USE Smoking Status *Q: Current Every Day Smoker Tobacco Use Within Last Twelve Months: Cigarettes Second Hand Smoke Exposure: No Recreational Drug Use History: No - HOME MEDS Home Medications: Home Meds . [No Known Home Meds] 03/28/17 [History] - CURRENT (IN HOUSE) MEDS Current Meds: Current Medications Acetaminophen (Tylenol) 650 mg PO Q4H PRN PRN Reason: Pain (Mild 1-3)/fever Last Admin: 03/29/17 08:43 Dose: 650 mg Hydrocodone Bitart/Acetaminophen (Buford 325-5 Mg) 1 - 2 tab PO Q4H PRN PRN Reason: Pain Last Admin: 03/30/17 01:36 Dose: 2 tab Bisacodyl (Dulcolax) 5 mg PO DAILY PRN PRN Reason: Constipation Docusate Sodium (Colace) 100 mg PO BID PRN PRN Reason: Constipation Enoxaparin Sodium (Lovenox) 40 mg SUBCUT DAILY [facility] Last Admin: 03/30/17 08:39 Dose: 40 mg Vancomycin HCl 1.5 gm/ Sodium (Chloride) 500 mls @ 333.333 mls/hr IV Q12H [facility] Last Infusion: 03/30/17 03:19 Dose: Infused Piperacillin Sod/Tazobactam (Sod 3.375 gm/ Sodium Chloride) 50 mls @ 100 mls/ hr IV Q6H [facility] Last Admin: 03/30/17 08:33 Dose: 100 mls/hr Cefazolin Sodium/Dextrose 2 gm (/ Premix) 50 mls @ 100 mls/hr IV ONCALL [facility] Lisinopril (Prinivil) 10 mg PO BID [facility] Last Admin: 03/30/17 08:45 Dose: 10 mg Ondansetron HCl (Zofran Odt) 4 mg PO Q4H PRN PRN Reason: nausea, able to take PO Sodium Chloride (Saline Flush) 10 ml FLUSH ASDIRECTED PRN PRN Reason: Keep Vein Open Last Admin: 03/28/17 15:49 Dose: 10 ml Sodium Chloride (Saline Flush) 2.5 ml FLUSH ASDIRECTED PRN PRN Reason: Keep Vein Open Last Admin: 03/28/17 15:49 Dose: 2.5 ml Temazepam (Restoril) 15 mg PO BEDTIME PRN PRN Reason: Sleep Vancomycin HCl (Pharmacy To Dose - Vancomycin) 1 dose .XX ASDIRECTED [facility] Discontinued Medications Diphtheria/Tetanus/Acell Pertussis (Adacel) 0.5 ml IM .ONCE ONE Stop: 03/28/17 18:05 Last Admin: 03/29/17 11:30 Dose: Not Given Diphtheria/Tetanus/Acell Pertussis (Adacel) 0.5 ml IM .ONCE ONE Stop: 03/29/17 08:46 Last Admin: 03/29/17 08:54 Dose: 0.5 ml Fentanyl (Sublimaze) Confirm Administered Dose 250 mcg .ROUTE .STK-MED ONE Stop: 03/30/17 14:11 Vancomycin HCl 1 gm/ Sodium (Chloride) 250 mls @ 250 mls/hr IV ONETIME ONE Stop: 03/28/17 17:27 Last Admin: 03/28/17 16:47 Dose: 250 mls/hr Lidocaine (Xylocaine-Mpf 2%) Confirm Administered Dose 10 ml .ROUTE .STK-MED ONE Stop: 03/30/17 14:11 Metoprolol Tartrate (Lopressor) 5 mg IVPUSH ONETIME ONE Stop: 03/28/17 16:02 Last Admin: 03/28/17 16:10 Dose: 5 mg Midazolam HCl (Versed 1 Mg/Ml) Confirm Administered Dose 2 mg .ROUTE .STK-MED ONE Stop: 03/30/17 14:11 Morphine Sulfate (Morphine) 4 mg IVPUSH ONETIME ONE Stop: 03/28/17 15:36 Last Admin: 03/28/17 15:49 Dose: 4 mg Propofol (Diprivan 20 Ml) Confirm Administered Dose 400 mg .ROUTE .STK-MED ONE Stop: 03/30/17 14:11
[2017-03-30] MEDS ORDERED: fentaNYL 100 MCG/2 ML SDV IVPUSH PRN (14:48)
[2017-03-30] MEDS ORDERED: HYDROmorphone 2 MG/ML Syringe IVPUSH ONE (14:48)
--- NOTE | 2017-03-30 15:16 | PCM.OPNOTE ---
- General Post-Op/Procedure Note Date of Surgery/Procedure: 03/30/17 Operative Procedure(s): Irrigation and debridement of left prepatellar bursa Post-Op Diagnosis: Infected left prepatellar bursa Anesthesia Technique: General LMA Primary Surgeon: Lynnette Quijano Dehairing Machine Tender: Selma Jarrell in mLs: 10 Condition: Fair Free Text/Narrative:: tt=12 min #[id number] Intake & Output 03/30/17 03/30/17 03/30/17 06:59 14:59 22:59 Intake Total 1230 50 Balance 1230 50
--- NOTE | 2017-03-30 15:35 | PCM.POSTAN ---
POST ANESTHESIA ASSESSMENT - MENTAL STATUS Mental Status: Alert, Oriented - RESPIRATORY Respiratory Status: Respiratory Rate WNL, Airway Patent, O2 Saturation Stable - CARDIOVASCULAR CV Status: Pulse Rate WNL, Blood Pressure Stable - GASTROINTESTINAL GI Status: No Symptoms - POST OP HYDRATION Hydration Status: Adequate & Stable
[2017-03-30] MEDS ORDERED: HYDROmorphone 1 MG/ML Syringe IVPUSH ONE (17:50)
[2017-03-30] MEDS ORDERED: HYDROmorphone 1 MG/ML Syringe IVPUSH PRN (17:51)
--- NOTE | 2017-03-30 20:50 | OR ---
SURGEON: Lynnette Quijano MD DATE OF PROCEDURE: 03/30/2017 PREOPERATIVE DIAGNOSIS: Infected left prepatellar bursa. POSTOPERATIVE DIAGNOSIS: Infected left prepatellar bursa. PROCEDURE: Irrigation and debridement of the left prepatellar bursa. BOW MAKER PRODUCTION: Selma Jarrell PA-C. ANESTHESIA: General. ESTIMATED BLOOD LOSS: 10 mL. TOURNIQUET TIME: 12 minutes. COMPLICATIONS: None. DVT PROPHYLAXIS: PAS boot to the nonoperative leg. IMPLANTS USED: None. BRIEF HISTORY: Angel is a 56-year-old male, who developed increasing left knee pain and swelling over the weekend. He cannot recall a specific injury, however, states he does do a lot of work on his knees. He was found to have a small pustule over the inferior patella tendon. He was admitted by the hospitalist. He was initially started on vancomycin and Zosyn. Today, he showed more fluctuance over the pustule with surrounding erythema and swelling. His CRP and ESR also began to elevate. His white count was 16,000. Due to his lack of response to conservative treatment, I did recommend surgical intervention. The risks and goals of procedure were discussed with the patient and were documented preoperatively. He agreed to proceed. DESCRIPTION OF PROCEDURE: The patient was properly identified and brought to the operating room. He was transferred from the OR cart and placed on the operating room table in supine position. General anesthesia was administered. After adequate anesthesia was obtained, a well-padded tourniquet was applied to the left lower extremity. The left lower extremity was then prepped in standard fashion using Betadine solution. It was then sterilely draped. A time-out was performed to ensure correct site and procedure. Preoperative antibiotics had been given on the floor. The surgical site had been marked preoperatively. The tourniquet was then inflated to 250 mmHg. An incision was made over the anterior aspect of the knee. The area around the pustule was ellipsed. As I extended into the subcutaneous tissues, a copious amount of purulent fluid was noted. This was sent for culture and sensitivity. The incision was extended to the superior portion of the patella as he appeared to have some bogginess to the suprapatellar region as well. The wound was then copiously irrigated with 6 L of normal saline. A small joint effusion was present, however the patient did have good range of motion prior to surgery and I elected to not enter the knee joint as there did not appear to be deep infection at this time. At the completion of the washout, the tissues appeared clean. A rongeur was used to remove any devitalized looking tissue. The fat surrounding the area of the pustule was also removed. Tourniquet was then deflated. The subcutaneous tissues were closed with 2-0 Monocryl. A quarter- inch Anand drain was placed into the bursal region to assist with drainage. The skin was closed with hollie. Xeroform gauze was placed over the wound and a bulky dressing was applied. He was then placed into a knee immobilizer. He was awakened from his anesthetic and transferred back to the operating room cart. He was brought to recovery room in stable condition. All needle and sponge counts were correct. BLAKE / ANGIE /[id number]
[2017-03-31] MEDS: Vancomycin 1.5 GM in Sodium Chloride 0.9% 500 ML IV SCH ×2 (01:39→13:13)
[2017-03-31] MEDS: Piperacillin/Tazobactam 3.375 GM in Sodium Chloride 0.9% 50 ML IV SCH ×2 (03:43→08:34)
[2017-03-31 05:26] LABS: CHLORIDE,CL 102 mmol/L (98-110); SODIUM,NA 136 mmol/L (136-146)
--- NOTE | 2017-03-31 07:47 | PCM.PN ---
- General Info Date of Service: 03/31/17 Admission Dx/Problem (Free Text): Admission Diagnosis/Problem Cellulitis of L knee Subjective Update: Doing fair this morning. Having some pain to L knee, pain pills help when he gets them. He denies chest pain or SOB. Fearful of what is going on. Explained to him we are no awaiting further culture results. No fevers. Functional Status: Reports: Pain Controlled, Tolerating Diet, Ambulating, Urinating - Review of Systems General: Reports: No Symptoms. Denies: Fever, Fatigue HEENT: Reports: No Symptoms. Denies: Headaches, Rhinitis, Visual Changes Pulmonary: Reports: No Symptoms. Denies: Shortness of Breath Cardiovascular: Reports: No Symptoms. Denies: Chest Pain Gastrointestinal: Reports: No Symptoms. Denies: Abdominal Pain, Diarrhea, Nausea, Vomiting Genitourinary: Reports: No Symptoms. Denies: Dysuria, Frequency, Burning Musculoskeletal: Reports: Joint Pain (L knee pain, reports it feels more swollen. No uncontrolled pain. ) Skin: Reports: No Symptoms Neurological: Reports: No Symptoms Psychiatric: Reports: No Symptoms - Patient Data Vitals - Most Recent: Last Vital Signs Temp 99 F 03/31/17 04:00 Pulse 88 03/31/17 04:00 Resp 18 03/31/17 04:00 BP 123/72 03/31/17 04:00 Pulse Ox 90 L 03/31/17 04:00 Weight - Most Recent: 96.4 kg I&O - Last 24 Hours: Intake & Output 03/30/17 03/31/17 03/31/17 22:59 06:59 14:59 Intake Total 1250 1050 Output Total 450 700 Balance 800 350 Lab Results Last 24 Hours: Laboratory Results - last 24 hr 03/30/17 03/31/17 03/31/17 Range/Units 13:17 04:58 04:58 WBC 12.49 H (4.0-11.0) K/uL RBC 4.21 L (4.50-5.90) M/uL Hgb 12.0 L (13.0-17.0) g/dL Hct 36.5 L (38.0-50.0) % MCV 86.7 (80.0-98.0) fL MCH 28.5 (27.0-32.0) pg MCHC 32.9 (31.0-37.0) g/dL RDW Std Deviation 43.9 (28.0-62.0) fl RDW Coeff of Whit 14 (11.0-15.0) % Plt Count 298 (150-400) K/uL MPV 9.00 (7.40-12.00) fL Neut % (Auto) 64.4 (48.0-80.0) % Lymph % (Auto) 18.3 (16.0-40.0) % Coleman % (Auto) 14.5 (0.0-15.0) % Eos % (Auto) 2.2 (0.0-7.0) % Baso % (Auto) 0.6 (0.0-1.5) % Neut # (Auto) 8.1 H (1.4-5.7) K/uL Lymph # (Auto) 2.3 (0.6-2.4) K/uL Coleman # (Auto) 1.8 H (0.0-0.8) K/uL Eos # (Auto) 0.3 (0.0-0.7) K/uL Baso # (Auto) 0.1 (0.0-0.1) K/uL Nucleated RBC % 0.0 /100WBC Nucleated RBCs # 0 K/uL Sodium 136 (136-146) mmol/L Potassium 4.4 (3.5-5.1) mmol/L Chloride 102 (98-110) mmol/L Carbon Dioxide 27 (21-31) mmol/L BUN 11 (6.0-23.0) mg/dL Creatinine 1.1 (0.6-1.5) mg/dL Est Cr Clr Drug Dosing 69.27 mL/min Estimated GFR (MDRD) > 60.0 ml/min Glucose 144 H (60-110) mg/dL Calcium 8.5 L (8.8-10.8) mg/dL Vancomycin Trough 13.3 (5-15) ug/mL Suresh Results Last 24 Hours: Microbiology 03/30/17 14:40 Gram Stain - Preliminary Knee, Left Med Orders - Current: Current Medications Acetaminophen (Tylenol) 650 mg PO Q4H PRN PRN Reason: Pain (Mild 1-3)/fever Last Admin: 03/29/17 08:43 Dose: 650 mg Hydrocodone Bitart/Acetaminophen (Ke[place] 325-5 Mg) 1 - 2 tab PO Q4H PRN PRN Reason: Pain Last Admin: 03/30/17 21:34 Dose: 2 tab Bisacodyl (Dulcolax) 5 mg PO DAILY PRN PRN Reason: Constipation Docusate Sodium (Colace) 100 mg PO BID PRN PRN Reason: Constipation Fentanyl (Sublimaze) 50 mcg IVPUSH Q5M PRN PRN Reason: Pain (severe 7-10) Stop: 03/31/17 14:48 Hydromorphone HCl (Dilaudid) 0.5 - 1 mg IVPUSH Q3H PRN PRN Reason: Pain Last Admin: 03/30/17 23:39 Dose: 1 mg Vancomycin HCl 1.5 gm/ Sodium (Chloride) 500 mls @ 333.333 mls/hr IV Q12H [facility] Last Infusion: 03/31/17 03:10 Dose: Infused Piperacillin Sod/Tazobactam (Sod 3.375 gm/ Sodium Chloride) 50 mls @ 100 mls/ hr IV Q6H [facility] Last Infusion: 03/31/17 04:15 Dose: Infused Cefazolin Sodium/Dextrose 2 gm (/ Premix) 50 mls @ 100 mls/hr IV ONCALL [facility] Lisinopril (Prinivil) 10 mg PO BID [facility] Last Admin: 03/30/17 20:35 Dose: 10 mg Ondansetron HCl (Zofran Odt) 4 mg PO Q4H PRN PRN Reason: nausea, able to take PO Last Admin: 03/30/17 20:41 Dose: 4 mg Sodium Chloride (Saline Flush) 10 ml FLUSH ASDIRECTED PRN PRN Reason: Keep Vein Open Last Admin: 03/28/17 15:49 Dose: 10 ml Sodium Chloride (Saline Flush) 2.5 ml FLUSH ASDIRECTED PRN PRN Reason: Keep Vein Open Last Admin: 03/28/17 15:49 Dose: 2.5 ml Temazepam (Restoril) 15 mg PO BEDTIME PRN PRN Reason: Sleep Vancomycin HCl (Pharmacy To Dose - Vancomycin) 1 dose .XX ASDIRECTED [facility] Discontinued Medications Diphtheria/Tetanus/Acell Pertussis (Adacel) 0.5 ml IM .ONCE ONE Stop: 03/28/17 18:05 Last Admin: 03/29/17 11:30 Dose: Not Given Diphtheria/Tetanus/Acell Pertussis (Adacel) 0.5 ml IM .ONCE ONE Stop: 03/29/17 08:46 Last Admin: 03/29/17 08:54 Dose: 0.5 ml Enoxaparin Sodium (Lovenox) 40 mg SUBCUT DAILY [facility] Last Admin: 03/30/17 08:39 Dose: 40 mg Fentanyl (Sublimaze) Confirm Administered Dose 250 mcg .ROUTE .STK-MED ONE Stop: 03/30/17 14:11 Hydromorphone HCl (Dilaudid) 0 mg IVPUSH ONETIME ONE Stop: 03/30/17 14:49 Hydromorphone HCl (Dilaudid) 1 mg IVPUSH ONETIME ONE Stop: 03/30/17 17:51 Last Admin: 03/30/17 18:11 Dose: 1 mg Vancomycin HCl 1 gm/ Sodium (Chloride) 250 mls @ 250 mls/hr IV ONETIME ONE Stop: 03/28/17 17:27 Last Admin: 03/28/17 16:47 Dose: 250 mls/hr Lidocaine (Xylocaine-Mpf 2%) Confirm Administered Dose 10 ml .ROUTE .STK-MED ONE Stop: 03/30/17 14:11 Metoprolol Tartrate (Lopressor) 5 mg IVPUSH ONETIME ONE Stop: 03/28/17 16:02 Last Admin: 03/28/17 16:10 Dose: 5 mg Midazolam HCl (Versed 1 Mg/Ml) Confirm Administered Dose 2 mg .ROUTE .STK-MED ONE Stop: 03/30/17 14:11 Morphine Sulfate (Morphine) 4 mg IVPUSH ONETIME ONE Stop: 03/28/17 15:36 Last Admin: 03/28/17 15:49 Dose: 4 mg Propofol (Diprivan 20 Ml) Confirm Administered Dose 400 mg .ROUTE .STK-MED ONE Stop: 03/30/17 14:11 - Exam Quality Assessment: DVT Prophylaxis (SCDs) General: Alert, Oriented, Cooperative, No Acute Distress Neck: Supple Lungs: Clear to Auscultation, Normal Respiratory Effort Cardiovascular: Regular Rate, Regular Rhythm GI/Abdominal Exam: Normal Bowel Sounds, Soft, Non-Tender, No Organomegaly, No Distention, No Abnormal Bruit, No Mass, Pelvis Stable Extremities: No Pedal Edema Wound/Incisions: Dressing Dry and Intact (CHAVO wrap and knee immobilizer to L knee. No drainage on outside of dressing. L foot, cap refill less than 2, good pulses and warm. No pain to ankle movement.) Psy/Mental Status: Alert, Normal Affect, Normal Mood - Problem List & Annotations (1) Abscess SNOMED Code(s): 383780814 Code(s): L02.91 - CUTANEOUS ABSCESS, UNSPECIFIED Status: Acute Current Visit: Yes (2) Cellulitis of left knee SNOMED Code(s): 81119111 Code(s): L03.116 - CELLULITIS OF LEFT LOWER LIMB Status: Acute Current Visit: Yes (3) Asplenia SNOMED Code(s): 843701101 Code(s): Q89.01 - ASPLENIA (CONGENITAL) Status: Chronic Current Visit: Yes (4) Hypertension SNOMED Code(s): 82381486 Code(s): I10 - ESSENTIAL (PRIMARY) HYPERTENSION Status: Chronic Current Visit: Yes Qualifiers: Hypertension type: essential hypertension Qualified Code(s): I10 - Essential (primary) hypertension - Problem List Review Problem List Initiated/Reviewed/Updated: Yes - My Orders Last 24 Hours: My Active Orders 03/30/17 Dinner Regular Diet [DIET] - Plan Plan:: This 56 year old male admitted with L knee cellulitis 1. Infected L prepatellar bursa: Went to OR yesterday for I & D with Dr. Quijano. Leukocytosis improved to 12,000. Continue Vancomycin and Zosyn. L knee immobilizer in place until tomorrow. Awaiting wound culture results then will de -escalate antibiotics as possible. Dr. Quijano, recommends IV antibiotics at discharge. Will monitor. BC negative x 2 days. Afebrile. 2. HTN: Much better, 120-130/80s. Continue Lisinopril 10 mg BID. Will monitor 3. Asplenia: Monitor. VTE prophylaxis: SCDs Dispo: 2-3 days pending improvement.
[2017-03-31] MEDS: Acetaminophen/HYDROcodone 325-5 MG Tab PO PRN ×2 (08:17→21:00)
[2017-03-31] MEDS: Lisinopril 10 MG Tab PO SCH ×2 (08:22→21:00)
--- NOTE | 2017-03-31 10:06 | PCM.SURGPN ---
- General Info Date of Service: 03/31/17 Date of Surgery/Procedure: 03/30/17 POD#: 1 Functional Status: Reports: Pain Controlled, Tolerating Diet, Ambulating, Urinating - Review of Systems General: Reports: No Symptoms Pulmonary: Reports: No Symptoms Cardiovascular: Reports: No Symptoms Gastrointestinal: Reports: No Symptoms Systems Review Comment:: pt resting in bed, L knee immobilizer in place pain last night, better controlled with IV dilaudid and continued PO norco 5/325 questioning how long he will have to be in the hospital - Patient Data Vitals - Most Recent: Last Vital Signs Temp 98.9 F 03/31/17 08:00 Pulse 89 03/31/17 08:00 Resp 20 03/31/17 08:00 BP 131/74 03/31/17 08:22 Pulse Ox 93 L 03/31/17 08:00 Weight - Most Recent: 96.4 kg I&O - Last 24 Hours: Intake & Output 03/30/17 03/31/17 03/31/17 22:59 06:59 14:59 Intake Total 1250 1050 50 Output Total 450 700 Balance 800 350 50 Lab Results Last 24 Hrs: Laboratory Results - last 24 hr 03/30/17 03/31/17 03/31/17 Range/Units 13:17 04:58 04:58 WBC 12.49 H (4.0-11.0) K/uL RBC 4.21 L (4.50-5.90) M/uL Hgb 12.0 L (13.0-17.0) g/dL Hct 36.5 L (38.0-50.0) % MCV 86.7 (80.0-98.0) fL MCH 28.5 (27.0-32.0) pg MCHC 32.9 (31.0-37.0) g/dL RDW Std Deviation 43.9 (28.0-62.0) fl RDW Coeff of Whit 14 (11.0-15.0) % Plt Count 298 (150-400) K/uL MPV 9.00 (7.40-12.00) fL Neut % (Auto) 64.4 (48.0-80.0) % Lymph % (Auto) 18.3 (16.0-40.0) % Jackson % (Auto) 14.5 (0.0-15.0) % Eos % (Auto) 2.2 (0.0-7.0) % Baso % (Auto) 0.6 (0.0-1.5) % Neut # (Auto) 8.1 H (1.4-5.7) K/uL Lymph # (Auto) 2.3 (0.6-2.4) K/uL Jackson # (Auto) 1.8 H (0.0-0.8) K/uL Eos # (Auto) 0.3 (0.0-0.7) K/uL Baso # (Auto) 0.1 (0.0-0.1) K/uL Nucleated RBC % 0.0 /100WBC Nucleated RBCs # 0 K/uL Sodium 136 (136-146) mmol/L Potassium 4.4 (3.5-5.1) mmol/L Chloride 102 (98-110) mmol/L Carbon Dioxide 27 (21-31) mmol/L BUN 11 (6.0-23.0) mg/dL Creatinine 1.1 (0.6-1.5) mg/dL Est Cr Clr Drug Dosing 69.27 mL/min Estimated GFR (MDRD) > 60.0 ml/min Glucose 144 H (60-110) mg/dL Calcium 8.5 L (8.8-10.8) mg/dL Vancomycin Trough 13.3 (5-15) ug/mL Suresh Results Last 24 Hrs: Microbiology 03/30/17 14:40 Gram Stain - Preliminary Knee, Left Med Orders - Current: Current Medications Acetaminophen (Tylenol) 650 mg PO Q4H PRN PRN Reason: Pain (Mild 1-3)/fever Last Admin: 03/29/17 08:43 Dose: 650 mg Hydrocodone Bitart/Acetaminophen ([place] 325-5 Mg) 1 - 2 tab PO Q4H PRN PRN Reason: Pain Last Admin: 03/31/17 08:17 Dose: 2 tab Bisacodyl (Dulcolax) 5 mg PO DAILY PRN PRN Reason: Constipation Docusate Sodium (Colace) 100 mg PO BID PRN PRN Reason: Constipation Fentanyl (Sublimaze) 50 mcg IVPUSH Q5M PRN PRN Reason: Pain (severe 7-10) Stop: 03/31/17 14:48 Hydromorphone HCl (Dilaudid) 0.5 - 1 mg IVPUSH Q3H PRN PRN Reason: Pain Last Admin: 03/30/17 23:39 Dose: 1 mg Vancomycin HCl 1.5 gm/ Sodium (Chloride) 500 mls @ 333.333 mls/hr IV Q12H [facility] Last Infusion: 03/31/17 03:10 Dose: Infused Piperacillin Sod/Tazobactam (Sod 3.375 gm/ Sodium Chloride) 50 mls @ 100 mls/ hr IV Q6H [facility] Last Admin: 03/31/17 08:34 Dose: 100 mls/hr Cefazolin Sodium/Dextrose 2 gm (/ Premix) 50 mls @ 100 mls/hr IV ONCALL [facility] Lisinopril (Prinivil) 10 mg PO BID [facility] Last Admin: 03/31/17 08:22 Dose: 10 mg Ondansetron HCl (Zofran Odt) 4 mg PO Q4H PRN PRN Reason: nausea, able to take PO Last Admin: 03/30/17 20:41 Dose: 4 mg Sodium Chloride (Saline Flush) 10 ml FLUSH ASDIRECTED PRN PRN Reason: Keep Vein Open Last Admin: 03/28/17 15:49 Dose: 10 ml Sodium Chloride (Saline Flush) 2.5 ml FLUSH ASDIRECTED PRN PRN Reason: Keep Vein Open Last Admin: 03/28/17 15:49 Dose: 2.5 ml Temazepam (Restoril) 15 mg PO BEDTIME PRN PRN Reason: Sleep Vancomycin HCl (Pharmacy To Dose - Vancomycin) 1 dose .XX ASDIRECTED [facility] Discontinued Medications Diphtheria/Tetanus/Acell Pertussis (Adacel) 0.5 ml IM .ONCE ONE Stop: 03/28/17 18:05 Last Admin: 03/29/17 11:30 Dose: Not Given Diphtheria/Tetanus/Acell Pertussis (Adacel) 0.5 ml IM .ONCE ONE Stop: 03/29/17 08:46 Last Admin: 03/29/17 08:54 Dose: 0.5 ml Enoxaparin Sodium (Lovenox) 40 mg SUBCUT DAILY [facility] Last Admin: 03/30/17 08:39 Dose: 40 mg Fentanyl (Sublimaze) Confirm Administered Dose 250 mcg .ROUTE .STK-MED ONE Stop: 03/30/17 14:11 Hydromorphone HCl (Dilaudid) 0 mg IVPUSH ONETIME ONE Stop: 03/30/17 14:49 Hydromorphone HCl (Dilaudid) 1 mg IVPUSH ONETIME ONE Stop: 03/30/17 17:51 Last Admin: 03/30/17 18:11 Dose: 1 mg Vancomycin HCl 1 gm/ Sodium (Chloride) 250 mls @ 250 mls/hr IV ONETIME ONE Stop: 03/28/17 17:27 Last Admin: 03/28/17 16:47 Dose: 250 mls/hr Lidocaine (Xylocaine-Mpf 2%) Confirm Administered Dose 10 ml .ROUTE .STK-MED ONE Stop: 03/30/17 14:11 Metoprolol Tartrate (Lopressor) 5 mg IVPUSH ONETIME ONE Stop: 03/28/17 16:02 Last Admin: 03/28/17 16:10 Dose: 5 mg Midazolam HCl (Versed 1 Mg/Ml) Confirm Administered Dose 2 mg .ROUTE .STK-MED ONE Stop: 03/30/17 14:11 Morphine Sulfate (Morphine) 4 mg IVPUSH ONETIME ONE Stop: 03/28/17 15:36 Last Admin: 03/28/17 15:49 Dose: 4 mg Propofol (Diprivan 20 Ml) Confirm Administered Dose 400 mg .ROUTE .STK-MED ONE Stop: 03/30/17 14:11 - Exam Wound/Incisions: Dressing Dry and Intact, Other (knee immobilizer in place). No : Drainage General: Alert, Oriented Cardiovascular: Regular Rate, Regular Rhythm Physical Findings Comment:: vss, afeb WBC 12.49 (16.4 yesterday) blood cultures drawn in ER negative wound gram stain from OR cultures show many WBC, rare epithelials, moderate gram + cocci in chains/singles wound culture and sensitivity pending - Problem List Review Problem List Initiated/Reviewed/Updated: Yes - My Orders Last 24 Hours: Active Orders 24 hr Category Date Time Status Antiembolic Devices [RC] PER UNIT ROUTINE Care 03/30/17 15:11 Active Regular Diet [DIET] Diet 03/30/17 Dinner Active CULTURE ANAEROBIC [RM] Routine Lab 03/30/17 14:40 Results CULTURE WOUND [RM] Routine Lab 03/30/17 14:40 Results GRAM STAIN [RM] Routine Lab 03/30/17 14:40 Results VANCOMYCIN TROUGH [CHEM] Routine Lab 04/01/17 13:00 Ordered HYDROmorphone [Dilaudid] Med 03/30/17 17:51 Active 0.5 - 1 mg IVPUSH Q3H PRN ceFAZolin [Ancef] 2 gm Med 03/30/17 09:15 Active Premix Bag 1 bag IV ONCALL fentaNYL [Sublimaze] Med 03/30/17 14:48 Active 50 mcg IVPUSH Q5M PRN Sequential Compression Device [OM.PC] Routine Oth 03/30/17 15:11 Ordered Medication Orders Acetaminophen (Tylenol) 650 mg PO Q4H PRN PRN Reason: Pain (Mild 1-3)/fever Last Admin: 03/29/17 08:43 Dose: 650 mg Hydrocodone Bitart/Acetaminophen ([place] 325-5 Mg) 1 - 2 tab PO Q4H PRN PRN Reason: Pain Last Admin: 03/31/17 08:17 Dose: 2 tab Admin: 03/30/17 21:34 Dose: 2 tab Admin: 03/30/17 16:53 Dose: 2 tab Admin: 03/30/17 01:36 Dose: 2 tab Admin: 03/29/17 17:34 Dose: 1 tab Bisacodyl (Dulcolax) 5 mg PO DAILY PRN PRN Reason: Constipation Docusate Sodium (Colace) 100 mg PO BID PRN PRN Reason: Constipation Fentanyl (Sublimaze) 50 mcg IVPUSH Q5M PRN PRN Reason: Pain (severe 7-10) Stop: 03/31/17 14:48 Hydromorphone HCl (Dilaudid) 0.5 - 1 mg IVPUSH Q3H PRN PRN Reason: Pain Last Admin: 03/30/17 23:39 Dose: 1 mg Vancomycin HCl 1.5 gm/ Sodium (Chloride) 500 mls @ 333.333 mls/hr IV Q12H [facility] Last Infusion: 03/31/17 03:10 Dose: 333.3 mls/hr Admin: 03/31/17 01:39 Dose: 333.3 mls/hr Infusion: 03/30/17 16:47 Dose: 333.3 mls/hr Admin: 03/30/17 15:16 Dose: 333.3 mls/hr Infusion: 03/30/17 03:19 Dose: 333.3 mls/hr Admin: 03/30/17 01:36 Dose: 333.333 mls/hr Infusion: 03/29/17 14:48 Dose: 333.333 mls/hr Admin: 03/29/17 13:17 Dose: 333.333 mls/hr Infusion: 03/29/17 04:02 Dose: 333.333 mls/hr Admin: 03/29/17 02:31 Dose: 333.333 mls/hr Piperacillin Sod/Tazobactam (Sod 3.375 gm/ Sodium Chloride) 50 mls @ 100 mls/ hr IV Q6H [facility] Last Admin: 03/31/17 08:34 Dose: 100 mls/hr Infusion: 03/31/17 04:15 Dose: 100 mls/hr Admin: 03/31/17 03:43 Dose: 100 mls/hr Infusion: 03/30/17 21:10 Dose: 100 mls/hr Admin: 03/30/17 20:36 Dose: 100 mls/hr Infusion: 03/30/17 17:28 Dose: 100 mls/hr Admin: 03/30/17 16:58 Dose: 100 mls/hr Infusion: 03/30/17 09:03 Dose: 100 mls/hr Admin: 03/30/17 08:33 Dose: 100 mls/hr Infusion: 03/30/17 03:55 Dose: 100 mls/hr Admin: 03/30/17 03:21 Dose: 100 mls/hr Infusion: 03/29/17 21:47 Dose: 100 mls/hr Admin: 03/29/17 21:17 Dose: 100 mls/hr Infusion: 03/29/17 15:55 Dose: 100 mls/hr Admin: 03/29/17 15:25 Dose: 100 mls/hr Infusion: 03/29/17 10:22 Dose: 100 mls/hr Admin: 03/29/17 09:52 Dose: 100 mls/hr Cefazolin Sodium/Dextrose 2 gm (/ Premix) 50 mls @ 100 mls/hr IV ONCALL [facility] Lisinopril (Prinivil) 10 mg PO BID [facility] Last Admin: 03/31/17 08:22 Dose: 10 mg Admin: 03/30/17 20:35 Dose: 10 mg Admin: 03/30/17 08:45 Dose: 10 mg Admin: 03/29/17 21:16 Dose: 10 mg Admin: 03/29/17 08:43 Dose: 10 mg Admin: 03/28/17 21:02 Dose: 10 mg Ondansetron HCl (Zofran Odt) 4 mg PO Q4H PRN PRN Reason: nausea, able to take PO Last Admin: 03/30/17 20:41 Dose: 4 mg Sodium Chloride (Saline Flush) 10 ml FLUSH ASDIRECTED PRN PRN Reason: Keep Vein Open Last Admin: 03/28/17 15:49 Dose: 10 ml Sodium Chloride (Saline Flush) 2.5 ml FLUSH ASDIRECTED PRN PRN Reason: Keep Vein Open Last Admin: 03/28/17 15:49 Dose: 2.5 ml Temazepam (Restoril) 15 mg PO BEDTIME PRN PRN Reason: Sleep Vancomycin HCl (Pharmacy To Dose - Vancomycin) 1 dose .XX ASDIRECTED [facility] - Assessment Assessment (Free Text/Narrative):: POD#1 ED L septic prepatellar bursitis - Plan Plan (Free Text/Narrative):: continue pain management, knee immobilizer continue knee immobilizer and WBAT continue vanc/zosyn until sensitivities return d/w patient that with positive gram stain, recommend he stay in hospital until cultures/sensitivities reported and more specific antibiotic can be chosen
--- NOTE | 2017-03-31 12:25 | PCM.SN ---
- Free Text/Narrative Note: Wound culture returned with MRSA. Will place on precautions and stopped Zosyn, continue Vancomycin at this time. Will await [facility]IEU to make further decisions regarding antibiotics. Notified Selma French.
--- NOTE | 2017-03-31 15:11 | PCM48HPAN ---
Post Anesthesia Note - EVALUATION WITHIN 48HRS OF ANESTHETIC Vital Signs in Normal Range: Yes Patient Participated in Evaluation: Yes Respiratory Function Stable: Yes Airway Patent: Yes Cardiovascular Function Stable: Yes Hydration Status Stable: Yes Pain Control Satisfactory: Yes Nausea and Vomiting Control Satisfactory: Yes Mental Status Recovered: Yes
[2017-04-01] MEDS: Vancomycin 1.5 GM in Sodium Chloride 0.9% 500 ML IV SCH (02:37)
[2017-04-01] MEDS: Acetaminophen 325 MG Tab PO PRN (04:06)
[2017-04-01 05:56] LABS: CHLORIDE,CL 104 mmol/L (98-110); SODIUM,NA 139 mmol/L (136-146)
--- NOTE | 2017-04-01 08:03 | PCM.PN ---
- General Info Date of Service: 04/01/17 Admission Dx/Problem (Free Text): Admission Diagnosis/Problem Cellulitis/abscess of L knee Subjective Update: Patient doing fairly this morning, Dressing changed by Ortho this morning. Reports pain is good right now. No chest pain or SOB. Some edema to L ankle. Functional Status: Reports: Pain Controlled, Tolerating Diet, Ambulating, Urinating - Review of Systems HEENT: Reports: No Symptoms. Denies: Contact Lenses Pulmonary: Reports: No Symptoms. Denies: Shortness of Breath Cardiovascular: Reports: No Symptoms. Denies: Chest Pain, Palpitations Gastrointestinal: Reports: No Symptoms. Denies: Abdominal Pain, Nausea, Vomiting Genitourinary: Reports: No Symptoms. Denies: Frequency, Burning Musculoskeletal: Reports: Joint Pain (L knee, improving and pain medications help) Neurological: Reports: No Symptoms. Denies: Confusion Psychiatric: Reports: No Symptoms. Denies: Confusion - Patient Data Vitals - Most Recent: Last Vital Signs Temp 98.9 F 04/01/17 05:46 Pulse 82 04/01/17 05:46 Resp 20 04/01/17 05:46 BP 142/84 H 04/01/17 05:46 Pulse Ox 96 04/01/17 05:46 Weight - Most Recent: 96.4 kg I&O - Last 24 Hours: Intake & Output 03/31/17 04/01/17 04/01/17 22:59 06:59 14:59 Intake Total 880 350 Output Total 890 700 Balance -10 -350 Lab Results Last 24 Hours: Laboratory Results - last 24 hr 04/01/17 04/01/17 Range/Units 05:18 05:18 WBC 11.28 H (4.0-11.0) K/uL RBC 4.46 L (4.50-5.90) M/uL Hgb 12.5 L (13.0-17.0) g/dL Hct 38.5 (38.0-50.0) % MCV 86.3 (80.0-98.0) fL MCH 28.0 (27.0-32.0) pg MCHC 32.5 (31.0-37.0) g/dL RDW Std Deviation 43.5 (28.0-62.0) fl RDW Coeff of Whit 14 (11.0-15.0) % Plt Count 366 (150-400) K/uL MPV 9.00 (7.40-12.00) fL Neut % (Auto) 58.3 (48.0-80.0) % Lymph % (Auto) 23.5 (16.0-40.0) % [place]ison % (Auto) 14.4 (0.0-15.0) % Eos % (Auto) 3.1 (0.0-7.0) % Baso % (Auto) 0.7 (0.0-1.5) % Neut # (Auto) 6.6 H (1.4-5.7) K/uL Lymph # (Auto) 2.7 H (0.6-2.4) K/uL [place]ison # (Auto) 1.6 H (0.0-0.8) K/uL Eos # (Auto) 0.4 (0.0-0.7) K/uL Baso # (Auto) 0.1 (0.0-0.1) K/uL Nucleated RBC % 0.0 /100WBC Nucleated RBCs # 0 K/uL Sodium 139 (136-146) mmol/L Potassium 4.5 (3.5-5.1) mmol/L Chloride 104 (98-110) mmol/L Carbon Dioxide 26 (21-31) mmol/L BUN 10 (6.0-23.0) mg/dL Creatinine 0.9 (0.6-1.5) mg/dL Est Cr Clr Drug Dosing 84.67 mL/min Estimated GFR (MDRD) > 60.0 ml/min Glucose 120 H (60-110) mg/dL Calcium 8.7 L (8.8-10.8) mg/dL Med Orders - Current: Current Medications Acetaminophen (Tylenol) 650 mg PO Q4H PRN PRN Reason: Pain (Mild 1-3)/fever Last Admin: 04/01/17 04:06 Dose: 650 mg Hydrocodone Bitart/Acetaminophen ([place] 325-5 Mg) 1 - 2 tab PO Q4H PRN PRN Reason: Pain Last Admin: 03/31/17 21:00 Dose: 2 tab Bisacodyl (Dulcolax) 5 mg PO DAILY PRN PRN Reason: Constipation Docusate Sodium (Colace) 100 mg PO BID PRN PRN Reason: Constipation Hydromorphone HCl (Dilaudid) 0.5 - 1 mg IVPUSH Q3H PRN PRN Reason: Pain Last Admin: 03/30/17 23:39 Dose: 1 mg Vancomycin HCl 1.5 gm/ Sodium (Chloride) 500 mls @ 333.333 mls/hr IV Q12H [facility] Last Admin: 04/01/17 02:37 Dose: 333.3 mls/hr Cefazolin Sodium/Dextrose 2 gm (/ Premix) 50 mls @ 100 mls/hr IV ONCALL [facility] Lisinopril (Prinivil) 10 mg PO BID [facility] Last Admin: 03/31/17 21:00 Dose: 10 mg Ondansetron HCl (Zofran Odt) 4 mg PO Q4H PRN PRN Reason: nausea, able to take PO Last Admin: 03/30/17 20:41 Dose: 4 mg Sodium Chloride (Saline Flush) 10 ml FLUSH ASDIRECTED PRN PRN Reason: Keep Vein Open Last Admin: 03/28/17 15:49 Dose: 10 ml Sodium Chloride (Saline Flush) 2.5 ml FLUSH ASDIRECTED PRN PRN Reason: Keep Vein Open Last Admin: 03/28/17 15:49 Dose: 2.5 ml Temazepam (Restoril) 15 mg PO BEDTIME PRN PRN Reason: Sleep Vancomycin HCl (Pharmacy To Dose - Vancomycin) 1 dose .XX ASDIRECTED [facility] Discontinued Medications Diphtheria/Tetanus/Acell Pertussis (Adacel) 0.5 ml IM .ONCE ONE Stop: 03/28/17 18:05 Last Admin: 03/29/17 11:30 Dose: Not Given Diphtheria/Tetanus/Acell Pertussis (Adacel) 0.5 ml IM .ONCE ONE Stop: 03/29/17 08:46 Last Admin: 03/29/17 08:54 Dose: 0.5 ml Enoxaparin Sodium (Lovenox) 40 mg SUBCUT DAILY [facility] Last Admin: 03/30/17 08:39 Dose: 40 mg Fentanyl (Sublimaze) Confirm Administered Dose 250 mcg .ROUTE .STK-MED ONE Stop: 03/30/17 14:11 Fentanyl (Sublimaze) 50 mcg IVPUSH Q5M PRN PRN Reason: Pain (severe 7-10) Stop: 03/31/17 14:48 Hydromorphone HCl (Dilaudid) 0 mg IVPUSH ONETIME ONE Stop: 03/30/17 14:49 Hydromorphone HCl (Dilaudid) 1 mg IVPUSH ONETIME ONE Stop: 03/30/17 17:51 Last Admin: 03/30/17 18:11 Dose: 1 mg Vancomycin HCl 1 gm/ Sodium (Chloride) 250 mls @ 250 mls/hr IV ONETIME ONE Stop: 03/28/17 17:27 Last Admin: 03/28/17 16:47 Dose: 250 mls/hr Piperacillin Sod/Tazobactam (Sod 3.375 gm/ Sodium Chloride) 50 mls @ 100 mls/ hr IV Q6H [facility] Last Admin: 03/31/17 08:34 Dose: 100 mls/hr Lidocaine (Xylocaine-Mpf 2%) Confirm Administered Dose 10 ml .ROUTE .STK-MED ONE Stop: 03/30/17 14:11 Metoprolol Tartrate (Lopressor) 5 mg IVPUSH ONETIME ONE Stop: 03/28/17 16:02 Last Admin: 03/28/17 16:10 Dose: 5 mg Midazolam HCl (Versed 1 Mg/Ml) Confirm Administered Dose 2 mg .ROUTE .STK-MED ONE Stop: 03/30/17 14:11 Morphine Sulfate (Morphine) 4 mg IVPUSH ONETIME ONE Stop: 03/28/17 15:36 Last Admin: 03/28/17 15:49 Dose: 4 mg Propofol (Diprivan 20 Ml) Confirm Administered Dose 400 mg .ROUTE .STK-MED ONE Stop: 03/30/17 14:11 - Exam General: Alert, Oriented, Cooperative, No Acute Distress Neck: Supple Lungs: Clear to Auscultation, Normal Respiratory Effort Cardiovascular: Regular Rate, Regular Rhythm GI/Abdominal Exam: Normal Bowel Sounds, Soft, Non-Tender, No Organomegaly, No Distention, No Abnormal Bruit, No Mass, Pelvis Stable Extremities: Pedal Edema (+1 L pedal edema.) Wound/Incisions: Dressing Dry and Intact (L knee), Erythema Improving Neurological: No New Focal Deficit Psy/Mental Status: Alert, Normal Affect, Normal Mood - Problem List & Annotations (1) Abscess SNOMED Code(s): 119320911 Code(s): L02.91 - CUTANEOUS ABSCESS, UNSPECIFIED Status: Acute Current Visit: Yes (2) Cellulitis of left knee SNOMED Code(s): 14244337 Code(s): L03.116 - CELLULITIS OF LEFT LOWER LIMB Status: Acute Current Visit: Yes (3) Asplenia SNOMED Code(s): 824254303 Code(s): Q89.01 - ASPLENIA (CONGENITAL) Status: Chronic Current Visit: Yes (4) Hypertension SNOMED Code(s): 27958532 Code(s): I10 - ESSENTIAL (PRIMARY) HYPERTENSION Status: Chronic Current Visit: Yes Qualifiers: Hypertension type: essential hypertension Qualified Code(s): I10 - Essential (primary) hypertension - Problem List Review Problem List Initiated/Reviewed/Updated: Yes - Plan Plan:: This 56 year old male admitted with L knee cellulitis 1. Infected L prepatellar bursa: Improving. Leukocytosis improved to 11,000. Continue Vancomycin. L knee immobilizer in place, dressing and drain removed today. Wound culture from ED shows MRSA, awaiting culture taken during I/D, this shows gram + cocci chains/singles. Will monitor. BC negative x 3 days. Afebrile. 2. HTN: Some intermittent elevations, but overall improved. Continue Lisinopril 10 mg BID. Will monitor 3. Asplenia: Monitor. VTE prophylaxis: SCDs Dispo: 1-2 days, awaiting culture results prior to discharging home.
--- NOTE | 2017-04-01 08:11 | PCM.SURGPN ---
Addendum entered and electronically signed by Selma Jarrell PA 04/01/17 08: 57: MRSA wound culture was NOT obtained in OR, was skin wound culture done on admission. still awaiting OR wound culture/sensitivities WBC 11.28 ESR 47 CRP 14.59 ESR and CRP elevated as expected post-operatively, not accurate reflection of infectious process/improvement Original Note: <Selma Jarrell - Last Filed: 04/01/17 08:06> - General Info Date of Service: 04/01/17 Date of Surgery/Procedure: 03/30/17 POD#: 2 Functional Status: Reports: Pain Controlled, Tolerating Diet, Urinating. Denies : Ambulating - Review of Systems General: Reports: No Symptoms Pulmonary: Reports: No Symptoms Cardiovascular: Reports: No Symptoms Gastrointestinal: Reports: No Symptoms Musculoskeletal: Reports: Leg Pain Systems Review Comment:: pt resting in bed states pain is okay denies fevers, chills knee immobilizer in place continues to ask how long he has to be here - Patient Data Vitals - Most Recent: Last Vital Signs Temp 98.9 F 04/01/17 05:46 Pulse 82 04/01/17 05:46 Resp 20 04/01/17 05:46 BP 142/84 H 04/01/17 05:46 Pulse Ox 96 04/01/17 05:46 Weight - Most Recent: 96.4 kg I&O - Last 24 Hours: Intake & Output 03/31/17 04/01/17 04/01/17 22:59 06:59 14:59 Intake Total 880 350 Output Total 890 700 Balance -10 -350 Lab Results Last 24 Hrs: Laboratory Results - last 24 hr 04/01/17 04/01/17 Range/Units 05:18 05:18 WBC 11.28 H (4.0-11.0) K/uL RBC 4.46 L (4.50-5.90) M/uL Hgb 12.5 L (13.0-17.0) g/dL Hct 38.5 (38.0-50.0) % MCV 86.3 (80.0-98.0) fL MCH 28.0 (27.0-32.0) pg MCHC 32.5 (31.0-37.0) g/dL RDW Std Deviation 43.5 (28.0-62.0) fl RDW Coeff of Whit 14 (11.0-15.0) % Plt Count 366 (150-400) K/uL MPV 9.00 (7.40-12.00) fL Neut % (Auto) 58.3 (48.0-80.0) % Lymph % (Auto) 23.5 (16.0-40.0) % Edwards % (Auto) 14.4 (0.0-15.0) % Eos % (Auto) 3.1 (0.0-7.0) % Baso % (Auto) 0.7 (0.0-1.5) % Neut # (Auto) 6.6 H (1.4-5.7) K/uL Lymph # (Auto) 2.7 H (0.6-2.4) K/uL Edwards # (Auto) 1.6 H (0.0-0.8) K/uL Eos # (Auto) 0.4 (0.0-0.7) K/uL Baso # (Auto) 0.1 (0.0-0.1) K/uL Nucleated RBC % 0.0 /100WBC Nucleated RBCs # 0 K/uL Sodium 139 (136-146) mmol/L Potassium 4.5 (3.5-5.1) mmol/L Chloride 104 (98-110) mmol/L Carbon Dioxide 26 (21-31) mmol/L BUN 10 (6.0-23.0) mg/dL Creatinine 0.9 (0.6-1.5) mg/dL Est Cr Clr Drug Dosing 84.67 mL/min Estimated GFR (MDRD) > 60.0 ml/min Glucose 120 H (60-110) mg/dL Calcium 8.7 L (8.8-10.8) mg/dL Med Orders - Current: Current Medications Acetaminophen (Tylenol) 650 mg PO Q4H PRN PRN Reason: Pain (Mild 1-3)/fever Last Admin: 04/01/17 04:06 Dose: 650 mg Hydrocodone Bitart/Acetaminophen (Cawood 325-5 Mg) 1 - 2 tab PO Q4H PRN PRN Reason: Pain Last Admin: 03/31/17 21:00 Dose: 2 tab Bisacodyl (Dulcolax) 5 mg PO DAILY PRN PRN Reason: Constipation Docusate Sodium (Colace) 100 mg PO BID PRN PRN Reason: Constipation Hydromorphone HCl (Dilaudid) 0.5 - 1 mg IVPUSH Q3H PRN PRN Reason: Pain Last Admin: 03/30/17 23:39 Dose: 1 mg Vancomycin HCl 1.5 gm/ Sodium (Chloride) 500 mls @ 333.333 mls/hr IV Q12H [facility] Last Admin: 04/01/17 02:37 Dose: 333.3 mls/hr Cefazolin Sodium/Dextrose 2 gm (/ Premix) 50 mls @ 100 mls/hr IV ONCALL [facility] Lisinopril (Prinivil) 10 mg PO BID [facility] Last Admin: 03/31/17 21:00 Dose: 10 mg Ondansetron HCl (Zofran Odt) 4 mg PO Q4H PRN PRN Reason: nausea, able to take PO Last Admin: 03/30/17 20:41 Dose: 4 mg Sodium Chloride (Saline Flush) 10 ml FLUSH ASDIRECTED PRN PRN Reason: Keep Vein Open Last Admin: 03/28/17 15:49 Dose: 10 ml Sodium Chloride (Saline Flush) 2.5 ml FLUSH ASDIRECTED PRN PRN Reason: Keep Vein Open Last Admin: 03/28/17 15:49 Dose: 2.5 ml Temazepam (Restoril) 15 mg PO BEDTIME PRN PRN Reason: Sleep Vancomycin HCl (Pharmacy To Dose - Vancomycin) 1 dose .XX ASDIRECTED [facility] Discontinued Medications Diphtheria/Tetanus/Acell Pertussis (Adacel) 0.5 ml IM .ONCE ONE Stop: 03/28/17 18:05 Last Admin: 03/29/17 11:30 Dose: Not Given Diphtheria/Tetanus/Acell Pertussis (Adacel) 0.5 ml IM .ONCE ONE Stop: 03/29/17 08:46 Last Admin: 03/29/17 08:54 Dose: 0.5 ml Enoxaparin Sodium (Lovenox) 40 mg SUBCUT DAILY [facility] Last Admin: 03/30/17 08:39 Dose: 40 mg Fentanyl (Sublimaze) Confirm Administered Dose 250 mcg .ROUTE .STK-MED ONE Stop: 03/30/17 14:11 Fentanyl (Sublimaze) 50 mcg IVPUSH Q5M PRN PRN Reason: Pain (severe 7-10) Stop: 03/31/17 14:48 Hydromorphone HCl (Dilaudid) 0 mg IVPUSH ONETIME ONE Stop: 03/30/17 14:49 Hydromorphone HCl (Dilaudid) 1 mg IVPUSH ONETIME ONE Stop: 03/30/17 17:51 Last Admin: 03/30/17 18:11 Dose: 1 mg Vancomycin HCl 1 gm/ Sodium (Chloride) 250 mls @ 250 mls/hr IV ONETIME ONE Stop: 03/28/17 17:27 Last Admin: 03/28/17 16:47 Dose: 250 mls/hr Piperacillin Sod/Tazobactam (Sod 3.375 gm/ Sodium Chloride) 50 mls @ 100 mls/ hr IV Q6H [facility] Last Admin: 03/31/17 08:34 Dose: 100 mls/hr Lidocaine (Xylocaine-Mpf 2%) Confirm Administered Dose 10 ml .ROUTE .STK-MED ONE Stop: 03/30/17 14:11 Metoprolol Tartrate (Lopressor) 5 mg IVPUSH ONETIME ONE Stop: 03/28/17 16:02 Last Admin: 03/28/17 16:10 Dose: 5 mg Midazolam HCl (Versed 1 Mg/Ml) Confirm Administered Dose 2 mg .ROUTE .STK-MED ONE Stop: 03/30/17 14:11 Morphine Sulfate (Morphine) 4 mg IVPUSH ONETIME ONE Stop: 03/28/17 15:36 Last Admin: 03/28/17 15:49 Dose: 4 mg Propofol (Diprivan 20 Ml) Confirm Administered Dose 400 mg .ROUTE .STK-MED ONE Stop: 03/30/17 14:11 - Exam Wound/Incisions: Healing Well, Drainage (minimal serosanguinous drainage with tata removal), Erythema Improving General: Alert, Oriented Cardiovascular: Regular Rate, Regular Rhythm Extremities: Other (exam LLE - incision clean/dry/hollie in place. swelling and erythema improving. ROM 0-70 prior to pain in incision site) Physical Findings Comment:: vss, afeb wound culture MRSA - sarah beth pending - Problem List Review Problem List Initiated/Reviewed/Updated: Yes - My Orders Last 24 Hours: Active Orders 24 hr Category Date Time Status CRP [C-REACTIVE PROTEIN] [CHEM] Routine Lab 04/01/17 07:55 Ordered SEDIMENTATION RATE AUTO [HEME] Routine Lab 04/01/17 07:55 Ordered VANCOMYCIN TROUGH [CHEM] Routine Lab 04/01/17 13:00 Ordered Medication Orders Acetaminophen (Tylenol) 650 mg PO Q4H PRN PRN Reason: Pain (Mild 1-3)/fever Last Admin: 04/01/17 04:06 Dose: 650 mg Admin: 03/29/17 08:43 Dose: 650 mg Hydrocodone Bitart/Acetaminophen (Cawood 325-5 Mg) 1 - 2 tab PO Q4H PRN PRN Reason: Pain Last Admin: 03/31/17 21:00 Dose: 2 tab Admin: 03/31/17 08:17 Dose: 2 tab Admin: 03/30/17 21:34 Dose: 2 tab Admin: 03/30/17 16:53 Dose: 2 tab Admin: 03/30/17 01:36 Dose: 2 tab Admin: 03/29/17 17:34 Dose: 1 tab Bisacodyl (Dulcolax) 5 mg PO DAILY PRN PRN Reason: Constipation Docusate Sodium (Colace) 100 mg PO BID PRN PRN Reason: Constipation Hydromorphone HCl (Dilaudid) 0.5 - 1 mg IVPUSH Q3H PRN PRN Reason: Pain Last Admin: 03/30/17 23:39 Dose: 1 mg Vancomycin HCl 1.5 gm/ Sodium (Chloride) 500 mls @ 333.333 mls/hr IV Q12H [facility] Last Admin: 04/01/17 02:37 Dose: 333.3 mls/hr Infusion: 03/31/17 14:44 Dose: 333.3 mls/hr Admin: 03/31/17 13:13 Dose: 333.3 mls/hr Infusion: 03/31/17 03:10 Dose: 333.3 mls/hr Admin: 03/31/17 01:39 Dose: 333.3 mls/hr Infusion: 03/30/17 16:47 Dose: 333.3 mls/hr Admin: 03/30/17 15:16 Dose: 333.3 mls/hr Infusion: 03/30/17 03:19 Dose: 333.3 mls/hr Admin: 03/30/17 01:36 Dose: 333.333 mls/hr Infusion: 03/29/17 14:48 Dose: 333.333 mls/hr Admin: 03/29/17 13:17 Dose: 333.333 mls/hr Infusion: 03/29/17 04:02 Dose: 333.333 mls/hr Admin: 03/29/17 02:31 Dose: 333.333 mls/hr Cefazolin Sodium/Dextrose 2 gm (/ Premix) 50 mls @ 100 mls/hr IV ONCALL [facility] Lisinopril (Prinivil) 10 mg PO BID [facility] Last Admin: 03/31/17 21:00 Dose: 10 mg Admin: 03/31/17 08:22 Dose: 10 mg Admin: 03/30/17 20:35 Dose: 10 mg Admin: 03/30/17 08:45 Dose: 10 mg Admin: 03/29/17 21:16 Dose: 10 mg Admin: 03/29/17 08:43 Dose: 10 mg Admin: 03/28/17 21:02 Dose: 10 mg Ondansetron HCl (Zofran Odt) 4 mg PO Q4H PRN PRN Reason: nausea, able to take PO Last Admin: 03/30/17 20:41 Dose: 4 mg Sodium Chloride (Saline Flush) 10 ml FLUSH ASDIRECTED PRN PRN Reason: Keep Vein Open Last Admin: 03/28/17 15:49 Dose: 10 ml Sodium Chloride (Saline Flush) 2.5 ml FLUSH ASDIRECTED PRN PRN Reason: Keep Vein Open Last Admin: 03/28/17 15:49 Dose: 2.5 ml Temazepam (Restoril) 15 mg PO BEDTIME PRN PRN Reason: Sleep Vancomycin HCl (Pharmacy To Dose - Vancomycin) 1 dose .XX ASDIRECTED [facility] - Assessment Assessment (Free Text/Narrative):: L septic prepatellar bursitis - MRSA - Plan Plan (Free Text/Narrative):: tata drain removed, wound dressed with fluffs and Xspan dressing retainer patient may shower PT for crutch training continue IV vanc will switch to appropriate PO abx when sensitivities return <Lynnette Quijano - Last Filed: 04/01/17 13:15> - Patient Data Vitals - Most Recent: Last Vital Signs Temp 97.9 F 04/01/17 08:11 Pulse 68 04/01/17 08:11 Resp 16 04/01/17 08:11 BP 178/97 H 04/01/17 08:27 Pulse Ox 96 04/01/17 08:11 I&O - Last 24 Hours: Intake & Output 03/31/17 04/01/17 04/01/17 22:59 06:59 14:59 Intake Total 880 350 Output Total 890 700 Balance -10 -350 Lab Results Last 24 Hrs: Laboratory Results - last 24 hr 04/01/17 04/01/17 04/01/17 Range/Units 05:18 05:18 05:18 WBC 11.28 H (4.0-11.0) K/uL RBC 4.46 L (4.50-5.90) M/uL Hgb 12.5 L (13.0-17.0) g/dL Hct 38.5 (38.0-50.0) % MCV 86.3 (80.0-98.0) fL MCH 28.0 (27.0-32.0) pg MCHC 32.5 (31.0-37.0) g/dL RDW Std Deviation 43.5 (28.0-62.0) fl RDW Coeff of Whit 14 (11.0-15.0) % Plt Count 366 (150-400) K/uL MPV 9.00 (7.40-12.00) fL Neut % (Auto) 58.3 (48.0-80.0) % Lymph % (Auto) 23.5 (16.0-40.0) % Edwards % (Auto) 14.4 (0.0-15.0) % Eos % (Auto) 3.1 (0.0-7.0) % Baso % (Auto) 0.7 (0.0-1.5) % Neut # (Auto) 6.6 H (1.4-5.7) K/uL Lymph # (Auto) 2.7 H (0.6-2.4) K/uL Edwards # (Auto) 1.6 H (0.0-0.8) K/uL Eos # (Auto) 0.4 (0.0-0.7) K/uL Baso # (Auto) 0.1 (0.0-0.1) K/uL Nucleated RBC % 0.0 /100WBC Nucleated RBCs # 0 K/uL ESR 47 H (0-19) mm/hr Sodium 139 (136-146) mmol/L Potassium 4.5 (3.5-5.1) mmol/L Chloride 104 (98-110) mmol/L Carbon Dioxide 26 (21-31) mmol/L BUN 10 (6.0-23.0) mg/dL Creatinine 0.9 (0.6-1.5) mg/dL Est Cr Clr Drug Dosing 84.67 mL/min Estimated GFR (MDRD) > 60.0 ml/min Glucose 120 H (60-110) mg/dL Calcium 8.7 L (8.8-10.8) mg/dL C-Reactive Protein (0.0-0.5) mg/dL 04/01/17 Range/Units 05:18 WBC (4.0-11.0) K/uL RBC (4.50-5.90) M/uL Hgb (13.0-17.0) g/dL Hct (38.0-50.0) % MCV (80.0-98.0) fL MCH (27.0-32.0) pg MCHC (31.0-37.0) g/dL RDW Std Deviation (28.0-62.0) fl RDW Coeff of Whit (11.0-15.0) % Plt Count (150-400) K/uL MPV (7.40-12.00) fL Neut % (Auto) (48.0-80.0) % Lymph % (Auto) (16.0-40.0) % Edwards % (Auto) (0.0-15.0) % Eos % (Auto) (0.0-7.0) % Baso % (Auto) (0.0-1.5) % Neut # (Auto) (1.4-5.7) K/uL Lymph # (Auto) (0.6-2.4) K/uL Edwards # (Auto) (0.0-0.8) K/uL Eos # (Auto) (0.0-0.7) K/uL Baso # (Auto) (0.0-0.1) K/uL Nucleated RBC % /100WBC Nucleated RBCs # K/uL ESR (0-19) mm/hr Sodium (136-146) mmol/L Potassium (3.5-5.1) mmol/L Chloride (98-110) mmol/L Carbon Dioxide (21-31) mmol/L BUN (6.0-23.0) mg/dL Creatinine (0.6-1.5) mg/dL Est Cr Clr Drug Dosing mL/min Estimated GFR (MDRD) ml/min Glucose (60-110) mg/dL Calcium (8.8-10.8) mg/dL C-Reactive Protein 14.59 H (0.0-0.5) mg/dL Sarah Beth Results Last 24 Hrs: Microbiology 03/30/17 14:40 Gram Stain - Final Knee, Left Wound Culture - Final (Mrsa) Staphylococcus Aureus Anaerobic Culture - Final NO ANAEROBES ISOLATED Med Orders - Current: Current Medications Acetaminophen (Tylenol) 650 mg PO Q4H PRN PRN Reason: Pain (Mild 1-3)/fever Last Admin: 04/01/17 04:06 Dose: 650 mg Hydrocodone Bitart/Acetaminophen (Cawood 325-5 Mg) 1 - 2 tab PO Q4H PRN PRN Reason: Pain Last Admin: 03/31/17 21:00 Dose: 2 tab Bisacodyl (Dulcolax) 5 mg PO DAILY PRN PRN Reason: Constipation Docusate Sodium (Colace) 100 mg PO BID PRN PRN Reason: Constipation Hydromorphone HCl (Dilaudid) 0.5 - 1 mg IVPUSH Q3H PRN PRN Reason: Pain Last Admin: 03/30/17 23:39 Dose: 1 mg Vancomycin HCl 1.5 gm/ Sodium (Chloride) 500 mls @ 333.333 mls/hr IV Q12H [facility] Last Admin: 04/01/17 02:37 Dose: 333.3 mls/hr Cefazolin Sodium/Dextrose 2 gm (/ Premix) 50 mls @ 100 mls/hr IV ONCALL [facility] Lisinopril (Prinivil) 10 mg PO BID [facility] Last Admin: 04/01/17 08:27 Dose: 10 mg Ondansetron HCl (Zofran Odt) 4 mg PO Q4H PRN PRN Reason: nausea, able to take PO Last Admin: 03/30/17 20:41 Dose: 4 mg Sodium Chloride (Saline Flush) 10 ml FLUSH ASDIRECTED PRN PRN Reason: Keep Vein Open Last Admin: 03/28/17 15:49 Dose: 10 ml Sodium Chloride (Saline Flush) 2.5 ml FLUSH ASDIRECTED PRN PRN Reason: Keep Vein Open Last Admin: 03/28/17 15:49 Dose: 2.5 ml Temazepam (Restoril) 15 mg PO BEDTIME PRN PRN Reason: Sleep Vancomycin HCl (Pharmacy To Dose - Vancomycin) 1 dose .XX ASDIRECTED [facility] Discontinued Medications Diphtheria/Tetanus/Acell Pertussis (Adacel) 0.5 ml IM .ONCE ONE Stop: 03/28/17 18:05 Last Admin: 03/29/17 11:30 Dose: Not Given Diphtheria/Tetanus/Acell Pertussis (Adacel) 0.5 ml IM .ONCE ONE Stop: 03/29/17 08:46 Last Admin: 03/29/17 08:54 Dose: 0.5 ml Enoxaparin Sodium (Lovenox) 40 mg SUBCUT DAILY [facility] Last Admin: 03/30/17 08:39 Dose: 40 mg Fentanyl (Sublimaze) Confirm Administered Dose 250 mcg .ROUTE .STK-MED ONE Stop: 03/30/17 14:11 Fentanyl (Sublimaze) 50 mcg IVPUSH Q5M PRN PRN Reason: Pain (severe 7-10) Stop: 03/31/17 14:48 Hydromorphone HCl (Dilaudid) 0 mg IVPUSH ONETIME ONE Stop: 03/30/17 14:49 Hydromorphone HCl (Dilaudid) 1 mg IVPUSH ONETIME ONE Stop: 03/30/17 17:51 Last Admin: 03/30/17 18:11 Dose: 1 mg Vancomycin HCl 1 gm/ Sodium (Chloride) 250 mls @ 250 mls/hr IV ONETIME ONE Stop: 03/28/17 17:27 Last Admin: 03/28/17 16:47 Dose: 250 mls/hr Piperacillin Sod/Tazobactam (Sod 3.375 gm/ Sodium Chloride) 50 mls @ 100 mls/ hr IV Q6H [facility] Last Admin: 03/31/17 08:34 Dose: 100 mls/hr Lidocaine (Xylocaine-Mpf 2%) Confirm Administered Dose 10 ml .ROUTE .STK-MED ONE Stop: 03/30/17 14:11 Metoprolol Tartrate (Lopressor) 5 mg IVPUSH ONETIME ONE Stop: 03/28/17 16:02 Last Admin: 03/28/17 16:10 Dose: 5 mg Midazolam HCl (Versed 1 Mg/Ml) Confirm Administered Dose 2 mg .ROUTE .STK-MED ONE Stop: 03/30/17 14:11 Morphine Sulfate (Morphine) 4 mg IVPUSH ONETIME ONE Stop: 03/28/17 15:36 Last Admin: 03/28/17 15:49 Dose: 4 mg Propofol (Diprivan 20 Ml) Confirm Administered Dose 400 mg .ROUTE .STK-MED ONE Stop: 03/30/17 14:11 - Problem List & Annotations (1) Prepatellar bursitis SNOMED Code(s): 37990001 Code(s): M70.40 - PREPATELLAR BURSITIS, UNSPECIFIED KNEE Status: Acute Current Visit: Yes Qualifiers: Qualified Code(s): M70.42 - Prepatellar bursitis, left knee - My Orders Last 24 Hours: Active Orders 24 hr Category Date Time Status May Shower [RC] ASDIRECTED Care 04/01/17 08:11 Active Ready for Discharge [RC] PER UNIT ROUTINE Care 04/01/17 13:03 Active PT Evaluation and Treatment [CONS] Routine Cons 04/01/17 08:11 Active Medication Orders Acetaminophen (Tylenol) 650 mg PO Q4H PRN PRN Reason: Pain (Mild 1-3)/fever Last Admin: 04/01/17 04:06 Dose: 650 mg Admin: 03/29/17 08:43 Dose: 650 mg Hydrocodone Bitart/Acetaminophen (Cawood 325-5 Mg) 1 - 2 tab PO Q4H PRN PRN Reason: Pain Last Admin: 03/31/17 21:00 Dose: 2 tab Admin: 03/31/17 08:17 Dose: 2 tab Admin: 03/30/17 21:34 Dose: 2 tab Admin: 03/30/17 16:53 Dose: 2 tab Admin: 03/30/17 01:36 Dose: 2 tab Admin: 03/29/17 17:34 Dose: 1 tab Bisacodyl (Dulcolax) 5 mg PO DAILY PRN PRN Reason: Constipation Docusate Sodium (Colace) 100 mg PO BID PRN PRN Reason: Constipation Hydromorphone HCl (Dilaudid) 0.5 - 1 mg IVPUSH Q3H PRN PRN Reason: Pain Last Admin: 03/30/17 23:39 Dose: 1 mg Vancomycin HCl 1.5 gm/ Sodium (Chloride) 500 mls @ 333.333 mls/hr IV Q12H [facility] Last Admin: 04/01/17 02:37 Dose: 333.3 mls/hr Infusion: 03/31/17 14:44 Dose: 333.3 mls/hr Admin: 03/31/17 13:13 Dose: 333.3 mls/hr Infusion: 03/31/17 03:10 Dose: 333.3 mls/hr Admin: 03/31/17 01:39 Dose: 333.3 mls/hr Infusion: 03/30/17 16:47 Dose: 333.3 mls/hr Admin: 03/30/17 15:16 Dose: 333.3 mls/hr Infusion: 03/30/17 03:19 Dose: 333.3 mls/hr Admin: 03/30/17 01:36 Dose: 333.333 mls/hr Infusion: 03/29/17 14:48 Dose: 333.333 mls/hr Admin: 03/29/17 13:17 Dose: 333.333 mls/hr Infusion: 03/29/17 04:02 Dose: 333.333 mls/hr Admin: 03/29/17 02:31 Dose: 333.333 mls/hr Cefazolin Sodium/Dextrose 2 gm (/ Premix) 50 mls @ 100 mls/hr IV ONCALL [facility] Lisinopril (Prinivil) 10 mg PO BID [facility] Last Admin: 04/01/17 08:27 Dose: 10 mg Admin: 03/31/17 21:00 Dose: 10 mg Admin: 03/31/17 08:22 Dose: 10 mg Admin: 03/30/17 20:35 Dose: 10 mg Admin: 03/30/17 08:45 Dose: 10 mg Admin: 03/29/17 21:16 Dose: 10 mg Admin: 03/29/17 08:43 Dose: 10 mg Admin: 03/28/17 21:02 Dose: 10 mg Ondansetron HCl (Zofran Odt) 4 mg PO Q4H PRN PRN Reason: nausea, able to take PO Last Admin: 03/30/17 20:41 Dose: 4 mg Sodium Chloride (Saline Flush) 10 ml FLUSH ASDIRECTED PRN PRN Reason: Keep Vein Open Last Admin: 03/28/17 15:49 Dose: 10 ml Sodium Chloride (Saline Flush) 2.5 ml FLUSH ASDIRECTED PRN PRN Reason: Keep Vein Open Last Admin: 03/28/17 15:49 Dose: 2.5 ml Temazepam (Restoril) 15 mg PO BEDTIME PRN PRN Reason: Sleep Vancomycin HCl (Pharmacy To Dose - Vancomycin) 1 dose .XX ASDIRECTED [facility] - Plan Plan (Free Text/Narrative):: 1330 Patient seen and examined. Agree with above note. States pain controlled with po meds. Dressing changed earlier. Immobilizer discontinued. Has been OOB and ambulating. VSS, afeb Dressing intact. ROM 0-70 degrees with minimal pain. No calf TTP. NVI. POD#2 1. intraop culture + MRSA--sensitive to Bactrim. will keep on Bactrim x 2 weeks. 2. Aquicell dressing prior to discharge if minimal drainage 3. activity and ROM as tolerated 4. plan to discharge home today. F/u next Tuesday for re-evaluation. Patient agrees with plan. Advised to return to ER if pain/swelling increases prior to appointment. rrk
[2017-04-01] MEDS: Lisinopril 10 MG Tab PO SCH (08:27)
[2017-04-01 08:28] VITALS: BP 178/97
--- NOTE | 2017-04-01 11:45 | PCM.DCSUM1 ---
Discharge Summary - Hospital Course Brief History: This 56 year old male with pmh of asplenia presented to the ED with a three day history of left knee pain and redness. It hurts to walk. NO definite fever, but decreased appetite, no nausea or vomiting. He reports the knee pain started with a foreign body sensation and a small "sore". He attempted to squeeze it but nothing would come out. 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 No known prior knee injury. In the ED leukocytosis noted 18,190 CRP 2.98 and ESR 5.0. Xray revealed prepatellar soft tissue swelling. He was treated with vancomycin and admitted. BC obtained. - Discharge Data Discharge Date: 04/01/17 Discharge Disposition: Home, Self-Care 01 Condition: Good - Discharge Diagnosis/Problem(s) (1) Abscess SNOMED Code(s): 462973546 ICD Code: L02.91 - CUTANEOUS ABSCESS, UNSPECIFIED Status: Acute Current Visit: Yes (2) Cellulitis of left knee SNOMED Code(s): 59853552 ICD Code: L03.116 - CELLULITIS OF LEFT LOWER LIMB Status: Acute Current Visit: Yes (3) Asplenia SNOMED Code(s): 478648195 ICD Code: Q89.01 - ASPLENIA (CONGENITAL) Status: Chronic Current Visit: Yes (4) Hypertension SNOMED Code(s): 43313750 ICD Code: I10 - ESSENTIAL (PRIMARY) HYPERTENSION Status: Chronic Current Visit: Yes Qualifiers: Hypertension type: essential hypertension Qualified Code(s): I10 - Essential (primary) hypertension - Patient Summary/Data Operative Procedure(s) Performed: Irrigation and debridement of left prepatellar bursa Consults: Consultations 03/28/17 17:59 Consult to Physician [CONS] Urgent 04/01/17 08:11 PT Evaluation and Treatment [CONS] Routine - Patient Instructions Diet: Heart Healthy Diet Activity: Elevate Extremity, Full Weight Bearing Driving: Do Not Drive (no driving while on narcotics) Showering/Bathing: May Shower Wound/Incision Care: Keep Operative Site/Wound Site Clean and Dry - Discharge Plan Prescriptions/Med Rec: Acetaminophen/HYDROcodone [[place] 325-5 MG] 2 tab PO Q6H PRN #20 tablet PRN Reason: Pain Docusate Sodium [Colace] 100 mg PO BID PRN #30 cap PRN Reason: Constipation Lisinopril [Prinivil] 10 mg PO BID #60 tablet Sulfamethoxazole/Trimethoprim [Bactrim Ds Tablet] 1 each PO BID #28 tablet Home Medications: Home Meds Acetaminophen/HYDROcodone [[place] 325-5 MG] 2 tab PO Q6H PRN #20 tablet 04/01/17 [Rx] Docusate Sodium [Colace] 100 mg PO BID PRN #30 cap 04/01/17 [Rx] Lisinopril [Prinivil] 10 mg PO BID #60 tablet 04/01/17 [Rx] Sulfamethoxazole/Trimethoprim [Bactrim Ds Tablet] 1 each PO BID #28 tablet 04/01 [Rx] Patient Handouts: Cellulitis, Adult, [id number], Incision and Drainage, Care After Referrals: Iam Vázquez MD [Resident] - 04/08/17 2:30 pm Selma Jarrell PA [Physician Director Of Publications] - 04/05/17 1:30 pm - Discharge Summary/Plan Comment DC Time >30 min.: No Discharge Summary/Plan Comment: Admitting Diagnoses: L knee cellulitis Asplenia Discharge Diagnoses L knee prepatellar infected bursitis S/P I&D L knee prepatellar infected bursitis MRSA positive culture HTN Asplenia Jhony was admitted and initially treated with Vancomycin for L knee cellulitis, but due to asplenia, Zosyn was added to have adequate coverage for gram negative bacteria. He slowly improved, but more fluctuance noted to L prepatellar region. Dr. Quijano consulted and opted on day 2 of admission to perform I&D. Cultures obtained and returned today with MRSA. He is ambulating well, BC negative and leukoctyosis has improved to 11,[address] Quijano will see patient in follow up next Tuesday. MRSA sensitive to Bactrim DS. WIll send him on on 1 tab BID for 2 weeks. Along with Philadelphia 5/325 2 tabs every 6 hours as needed for pain #20 tabs no refills. Patient will be unable to drive while taking narcotics. He was also educated on watching for a rash that could include eyes, face body or groin. He should stop taking Bactrim and talk with PCP immediately. During his stay, uncontrolled HTN noted. He was started on Lisinopril 10 mg BID which helped control HTN. He was asymptomatic. Outpatient follow up will be arrange in 1 week with PCP. - General Info Date of Service: 04/01/17 Admission Dx/Problem (Free Text: Admission Diagnosis/Problem Cellulitis/abscess of L knee Subjective Update: Doing well and eager for discharge home. Pain is well controlled on [place]. He is ambulating well without crutches once immobilizer was removed. Denies chest pain or SOB Functional Status: Reports: Pain Controlled, Tolerating Diet, Ambulating, Urinating - Review of Systems General: Reports: No Symptoms. Denies: Fever Pulmonary: Reports: No Symptoms. Denies: Shortness of Breath Cardiovascular: Reports: No Symptoms. Denies: Chest Pain, Palpitations Gastrointestinal: Reports: No Symptoms. Denies: Abdominal Pain, Diarrhea, Nausea, Vomiting Musculoskeletal: Reports: Joint Pain (L knee pain, but controlled.) - Patient Data Vitals - Most Recent: Last Vital Signs Temp 97.9 F 04/01/17 08:11 Pulse 68 04/01/17 08:11 Resp 16 04/01/17 08:11 BP 178/97 H 04/01/17 08:27 Pulse Ox 96 04/01/17 08:11 Weight - Most Recent: 96.4 kg I&O - Last 24 hours: Intake & Output 03/31/17 04/01/17 04/01/17 22:59 06:59 14:59 Intake Total 880 350 Output Total 890 700 Balance -10 -350 Lab Results - Last 24 hrs: Laboratory Results - last 24 hr 04/01/17 04/01/17 04/01/17 Range/Units 05:18 05:18 05:18 WBC 11.28 H (4.0-11.0) K/uL RBC 4.46 L (4.50-5.90) M/uL Hgb 12.5 L (13.0-17.0) g/dL Hct 38.5 (38.0-50.0) % MCV 86.3 (80.0-98.0) fL MCH 28.0 (27.0-32.0) pg MCHC 32.5 (31.0-37.0) g/dL RDW Std Deviation 43.5 (28.0-62.0) fl RDW Coeff of Whit 14 (11.0-15.0) % Plt Count 366 (150-400) K/uL MPV 9.00 (7.40-12.00) fL Neut % (Auto) 58.3 (48.0-80.0) % Lymph % (Auto) 23.5 (16.0-40.0) % [place] % (Auto) 14.4 (0.0-15.0) % Eos % (Auto) 3.1 (0.0-7.0) % Baso % (Auto) 0.7 (0.0-1.5) % Neut # (Auto) 6.6 H (1.4-5.7) K/uL Lymph # (Auto) 2.7 H (0.6-2.4) K/uL [place] # (Auto) 1.6 H (0.0-0.8) K/uL Eos # (Auto) 0.4 (0.0-0.7) K/uL Baso # (Auto) 0.1 (0.0-0.1) K/uL Nucleated RBC % 0.0 /100WBC Nucleated RBCs # 0 K/uL ESR 47 H (0-19) mm/hr Sodium 139 (136-146) mmol/L Potassium 4.5 (3.5-5.1) mmol/L Chloride 104 (98-110) mmol/L Carbon Dioxide 26 (21-31) mmol/L BUN 10 (6.0-23.0) mg/dL Creatinine 0.9 (0.6-1.5) mg/dL Est Cr Clr Drug Dosing 84.67 mL/min Estimated GFR (MDRD) > 60.0 ml/min Glucose 120 H (60-110) mg/dL Calcium 8.7 L (8.8-10.8) mg/dL C-Reactive Protein (0.0-0.5) mg/dL 04/01/17 Range/Units 05:18 WBC (4.0-11.0) K/uL RBC (4.50-5.90) M/uL Hgb (13.0-17.0) g/dL Hct (38.0-50.0) % MCV (80.0-98.0) fL MCH (27.0-32.0) pg MCHC (31.0-37.0) g/dL RDW Std Deviation (28.0-62.0) fl RDW Coeff of Whit (11.0-15.0) % Plt Count (150-400) K/uL MPV (7.40-12.00) fL Neut % (Auto) (48.0-80.0) % Lymph % (Auto) (16.0-40.0) % [place] % (Auto) (0.0-15.0) % Eos % (Auto) (0.0-7.0) % Baso % (Auto) (0.0-1.5) % Neut # (Auto) (1.4-5.7) K/uL Lymph # (Auto) (0.6-2.4) K/uL [place] # (Auto) (0.0-0.8) K/uL Eos # (Auto) (0.0-0.7) K/uL Baso # (Auto) (0.0-0.1) K/uL Nucleated RBC % /100WBC Nucleated RBCs # K/uL ESR (0-19) mm/hr Sodium (136-146) mmol/L Potassium (3.5-5.1) mmol/L Chloride (98-110) mmol/L Carbon Dioxide (21-31) mmol/L BUN (6.0-23.0) mg/dL Creatinine (0.6-1.5) mg/dL Est Cr Clr Drug Dosing mL/min Estimated GFR (MDRD) ml/min Glucose (60-110) mg/dL Calcium (8.8-10.8) mg/dL C-Reactive Protein 14.59 H (0.0-0.5) mg/dL HIEU Results - Last 24 hrs: Microbiology 03/30/17 14:40 Gram Stain - Final Knee, Left Wound Culture - Final (Mrsa) Staphylococcus Aureus Anaerobic Culture - Final NO ANAEROBES ISOLATED Med Orders - Current: Current Medications Acetaminophen (Tylenol) 650 mg PO Q4H PRN PRN Reason: Pain (Mild 1-3)/fever Last Admin: 04/01/17 04:06 Dose: 650 mg Hydrocodone Bitart/Acetaminophen ([place] 325-5 Mg) 1 - 2 tab PO Q4H PRN PRN Reason: Pain Last Admin: 03/31/17 21:00 Dose: 2 tab Bisacodyl (Dulcolax) 5 mg PO DAILY PRN PRN Reason: Constipation Docusate Sodium (Colace) 100 mg PO BID PRN PRN Reason: Constipation Hydromorphone HCl (Dilaudid) 0.5 - 1 mg IVPUSH Q3H PRN PRN Reason: Pain Last Admin: 03/30/17 23:39 Dose: 1 mg Vancomycin HCl 1.5 gm/ Sodium (Chloride) 500 mls @ 333.333 mls/hr IV Q12H [facility] Last Admin: 04/01/17 02:37 Dose: 333.3 mls/hr Cefazolin Sodium/Dextrose 2 gm (/ Premix) 50 mls @ 100 mls/hr IV ONCALL [facility] Lisinopril (Prinivil) 10 mg PO BID [facility] Last Admin: 04/01/17 08:27 Dose: 10 mg Ondansetron HCl (Zofran Odt) 4 mg PO Q4H PRN PRN Reason: nausea, able to take PO Last Admin: 03/30/17 20:41 Dose: 4 mg Sodium Chloride (Saline Flush) 10 ml FLUSH ASDIRECTED PRN PRN Reason: Keep Vein Open Last Admin: 03/28/17 15:49 Dose: 10 ml Sodium Chloride (Saline Flush) 2.5 ml FLUSH ASDIRECTED PRN PRN Reason: Keep Vein Open Last Admin: 03/28/17 15:49 Dose: 2.5 ml Temazepam (Restoril) 15 mg PO BEDTIME PRN PRN Reason: Sleep Vancomycin HCl (Pharmacy To Dose - Vancomycin) 1 dose .XX ASDIRECTED [facility] Discontinued Medications Diphtheria/Tetanus/Acell Pertussis (Adacel) 0.5 ml IM .ONCE ONE Stop: 03/28/17 18:05 Last Admin: 03/29/17 11:30 Dose: Not Given Diphtheria/Tetanus/Acell Pertussis (Adacel) 0.5 ml IM .ONCE ONE Stop: 03/29/17 08:46 Last Admin: 03/29/17 08:54 Dose: 0.5 ml Enoxaparin Sodium (Lovenox) 40 mg SUBCUT DAILY [facility] Last Admin: 03/30/17 08:39 Dose: 40 mg Fentanyl (Sublimaze) Confirm Administered Dose 250 mcg .ROUTE .STK-MED ONE Stop: 03/30/17 14:11 Fentanyl (Sublimaze) 50 mcg IVPUSH Q5M PRN PRN Reason: Pain (severe 7-10) Stop: 03/31/17 14:48 Hydromorphone HCl (Dilaudid) 0 mg IVPUSH ONETIME ONE Stop: 03/30/17 14:49 Hydromorphone HCl (Dilaudid) 1 mg IVPUSH ONETIME ONE Stop: 03/30/17 17:51 Last Admin: 03/30/17 18:11 Dose: 1 mg Vancomycin HCl 1 gm/ Sodium (Chloride) 250 mls @ 250 mls/hr IV ONETIME ONE Stop: 03/28/17 17:27 Last Admin: 03/28/17 16:47 Dose: 250 mls/hr Piperacillin Sod/Tazobactam (Sod 3.375 gm/ Sodium Chloride) 50 mls @ 100 mls/ hr IV Q6H [facility] Last Admin: 03/31/17 08:34 Dose: 100 mls/hr Lidocaine (Xylocaine-Mpf 2%) Confirm Administered Dose 10 ml .ROUTE .STK-MED ONE Stop: 03/30/17 14:11 Metoprolol Tartrate (Lopressor) 5 mg IVPUSH ONETIME ONE Stop: 03/28/17 16:02 Last Admin: 03/28/17 16:10 Dose: 5 mg Midazolam HCl (Versed 1 Mg/Ml) Confirm Administered Dose 2 mg .ROUTE .STK-MED ONE Stop: 03/30/17 14:11 Morphine Sulfate (Morphine) 4 mg IVPUSH ONETIME ONE Stop: 03/28/17 15:36 Last Admin: 03/28/17 15:49 Dose: 4 mg Propofol (Diprivan 20 Ml) Confirm Administered Dose 400 mg .ROUTE .STK-MED ONE Stop: 03/30/17 14:11 - Exam General: Reports: Alert, Oriented, Cooperative, No Acute Distress Lungs: Reports: Clear to Auscultation, Normal Respiratory Effort Cardiovascular: Reports: Regular Rate, Regular Rhythm GI/Abdominal Exam: Normal Bowel Sounds, Soft, Non-Tender, No Organomegaly, No Distention, No Abnormal Bruit, No Mass, Pelvis Stable Skin: Reports: Warm, Dry. Denies: Rash Wound/Incisions: Reports: Dressing Dry and Intact, No Drainage, Erythema Improving Neurological: Reports: No New Focal Deficit Psy/Mental Status: Reports: Alert, Normal Affect, Normal Mood *Q Meaningful Use (DIS) - VTE *Q VTE Criteria *Q: - Stroke *Q Stroke Criteria *Q: - AMI *Q AMI Criteria *Q:
== END 2017-04-01 13:30 | disposition home or self-care (01) | DRG 951 ==
LOC: MW.ED 15:15 → MW.MS 17:51 → EEVIPCON 17:51
PROVIDERS: ADMIT Family Medicine; ATTEND Family Medicine
PROC: 0S9D0ZZ Drainage of Left Knee Joint, Open Approach (ICD-10-PCS; principal; 2017-03-30)
DX: L03.116 Cellulitis of left lower limb (principal); B95.62 Methicillin resistant Staphylococcus aureus infection as the cause of diseases classified elsewhere; L02.416 Cutaneous abscess of left lower limb; M70.40 Prepatellar bursitis, unspecified knee; Q89.01 Asplenia (congenital); I10 Essential (primary) hypertension; F17.200 Nicotine dependence, unspecified, uncomplicated
CPT/HCPCS: 00400; 36415; 73562-26-LT; 73562-LT; 80048; 80053; 80202; 83735; 85025; 85652; 86140; 87040; 87070; 87075; 87077; 87186; 87205; 90471; 90715; 96365; 96375; 97161-GP; 99284; 99284-25; A9270-GY; J1170; J1650; J2250; J2270; J2543; J2704; J3010; J3370; J7040; J7050

== ENCOUNTER 2017-12-09 14:26 | Emergency (ER) | payer BC ==
[2017-12-09] MEDS ORDERED: Silver Sulfadiazine 1% Crm 50 GM Tube TOP ONE (14:52)
[2017-12-09] MEDS ORDERED: Lisinopril 10 MG Tab PO ONE (14:52)
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
[2017-12-09 15:17] VITALS: BP 170/128
== END 2017-12-09 15:10 | disposition home or self-care (01) ==
LOC: MW.ED 14:26
DX: T24.231A Burn of second degree of right lower leg, initial encounter (principal); I10 Essential (primary) hypertension; F17.210 Nicotine dependence, cigarettes, uncomplicated; Z91.14 Patient's other noncompliance with medication regimen
CPT/HCPCS: 16020; 99283; A9270

== ENCOUNTER 2018-07-26 06:50 | Inpatient (IN) | payer BC ==
[~2018-07-26 06:50] MED LIST: ceFAZolin 2 GM in Premix Bag 1 BAG IV SCH
[2018-07-26] MEDS: Lactated Ringers 1,000 ML IV SCH ×3 (07:00→22:51)
[2018-07-26] MEDS ORDERED: Propofol 200 MG/20 ML SDV ONE (07:08)
[2018-07-26] MEDS ORDERED: Lidocaine 2% 5 ML SDV ONE (07:09)
[2018-07-26] MEDS ORDERED: Midazolam 1 MG/ML 2 ML SDV ONE (07:09)
[2018-07-26] MEDS ORDERED: fentaNYL 100 MCG/2 ML SDV ONE (07:09)
[2018-07-26] MEDS ORDERED: ceFAZolin 1 GM Vial ONE (07:14)
[2018-07-26] MEDS ORDERED: Sodium Chloride 0.9% 20 ML ONE (07:14)
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
[2018-07-26] MEDS ORDERED: Dermabond Prineo 1 Tube TOP ONE (07:32)
[2018-07-26] MEDS ORDERED: Phenylephrine 1% 10 MG/ML SDV ONE (08:14)
[2018-07-26] MEDS ORDERED: EPINEPHrine 1 MG/1 ML Amp IVPUSH PRN (08:30)
[2018-07-26] MEDS ORDERED: Naloxone 0.4 MG/ML Syringe IVPUSH PRN (08:30)
[2018-07-26] MEDS ORDERED: fentaNYL 100 MCG/2 ML SDV IVPUSH PRN (08:30)
[2018-07-26] MEDS ORDERED: Atropine 1 MG/ML SDV IVPUSH PRN ×2 (08:30)
[2018-07-26] MEDS ORDERED: Albuterol 0.083% 2.5 MG/3 ML Neb Soln NEB PRN (08:30)
[2018-07-26] MEDS ORDERED: 50% Dextrose in Water 50 ML Syringe IVPUSH PRN (08:30)
--- NOTE | 2018-07-26 09:15 | PCM.OPNOTE ---
- General Post-Op/Procedure Note Date of Surgery/Procedure: 07/26/18 Operative Procedure(s): left anterior total hip arthroplasty Findings: severe OA Pre Op Diagnosis: left hip osteoarthritis Post-Op Diagnosis: same Anesthesia Technique: Moderate Sedation, Spinal Primary Surgeon: Jose Antonio Majano Mai R Programmer: Selma Jarrell Pathology: femoral head EBL in mLs: 400 Complications: none Condition: Good
[2018-07-26] MEDS ORDERED: Aluminum Hydroxide/Magnesium Hydroxide/Simethicone Susp 30 ML Cup PO PRN (09:21)
[2018-07-26] MEDS ORDERED: Bisacodyl 10 MG Supp RECTAL PRN (09:21)
[2018-07-26] MEDS ORDERED: diphenhydrAMINE 25 MG Cap PO PRN (09:21)
[2018-07-26] MEDS ORDERED: Metoprolol Succinate 50 MG Tab.ER PO PRN (09:25)
[2018-07-26] MEDS ORDERED: Glycopyrrolate/Formoterol Fum [Bevespi Aerosphere Inhaler] INH PRN (09:25)
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
[2018-07-26 11:19] LABS: CHLORIDE,CL 106 mmol/L (98-107); SODIUM,NA 142 mmol/L (136-148)
[2018-07-26] MEDS: Acetaminophen/HYDROcodone 325-7.5 MG Tab PO PRN ×2 (11:20→22:50)
[2018-07-26] MEDS ORDERED: HYDROmorphone 1 MG/ML Syringe IV PRN (12:42)
[2018-07-26] MEDS: Ketorolac 30 MG/ML SDV IVPUSH SCH ×2 (13:01→19:16)
[2018-07-26] MEDS: Ondansetron 4 MG/2 ML SDV IV PRN (13:51)
--- NOTE | 2018-07-26 14:21 | OR ---
SURGEON: Jose Antonio Christine MD DATE OF PROCEDURE: 07/26/2018 VBA PROGRAMMER: Selma Jarrell PA-C PREOPERATIVE DIAGNOSIS: Left hip osteoarthritis. ANESTHESIA: Spinal with sedation. COMPLICATIONS: None. ESTIMATED BLOOD LOSS: 400 mL. SPECIMENS: Femoral head. IMPLANT: Deandre Continuum trabecular metal shell with cluster holes, 56 mm outer diameter, one 6.5 x 30 mm bone screw, Vivacit-E neutral liner, 36 mm inner diameter, ML taper press-fit stem, size 10 extended offset, Biolox ceramic femoral head 36 mm inner diameter, +3.5 neck length. INDICATIONS: The patient is a 58-year-old male with severe bilateral hip arthritis. He wished to undergo staged replacement starting on the left. He understands the risks, benefits, alternatives, complications of procedure including, but not limited to infection, neurovascular injury, continued pain, DVT, PE, stroke, RI, , leg-length discrepancy, fracture, dislocation, and he wished to proceed. DESCRIPTION OF PROCEDURE: The patient was seen in the preoperative area. Operative extremity was marked with the patient. He was transferred to operating room where spinal anesthesia was given. He was placed supine on the Nieves table, and legs were placed in legs bars with a narrow perineal post. Left hip was prepped and draped in the usual fashion using alcohol followed by ChloraPrep with Ioban covering. He received preop antibiotics Ancef 2 g and TXA. Formal time-out was taken, identifying the correct patient, procedure and extremity. An 8 cm incision starting just lateral to the ASIS going obliquely to the femur was made. Dissection was carried down to subcutaneous tissues. Hemostasis obtained. The fascia overlying the TFL lateral to lateral femoral cutaneous nerve was opened and interval between the TFL and sartorius deep between the abductors and rectus was opened. The vastus lateralis fascia was opened, and the anterior vessels were coagulated. A deep Edd tractor was placed. The indirect head of the rectus was released, and the capsule was held and tagged with two sutures. Deep retractors were placed. The next was cut from the saddle region to 0.5 cm to 1 cm above the lesser trochanter. The head was removed. There was severe arthritis and severe synovitis throughout the hip. Labral remnants were removed as well as the pulvinar of the inferior capsule was released preserving the iliopsoas tendon. Head measured approximately 51 mm. It was sequentially reamed from 51 up to 55 mm going slightly superior medially good fit and fill. After planing the bed to make sure it was level under fluoroscopic control, Continuum trabecular metal shell with cluster holes, placed in 10 degrees of anteversion and 40 degrees of abduction. This had excellent press fit. Once straight superior bone screw was placed after drilling due to the large acetabular cyst and after irrigating neutral liner it was impacted. The femoral lift was placed. Leg was externally rotated, abducted, and extended. The superior capsule, obturator, internus and piriformis were released. Central canal finder was utilized and was sequentially broached from a size 4 up to size 10 following the picayune version. This had excellent fit and fill. It was trial reduced based on preoperative templating with the extended offset, zero neck length. Printed overlay technique showed slightly decreased offset and slightly decreased left leg length but the stem filled very well. Therefore, the hip was dislocated. The trial components were removed. After irrigating the final size 10 extended offset, ML taper stem was impacted. This had excellent press fit. It was trial reduced with a +3.5 neck length. Printed overlay technique showed equal leg lengths and offset. Therefore, the hip was dislocated. The final ceramic head, 36 mm diameter, +3.5 neck length was impacted. The hip was then relocated. There was no Shuck. There was stable range of motion. The two tag sutures were tied together. The fascia was closed with #1 Vicryl. Subcu tissues with 2-0 Stratafix and skin with running 4-0 Monocryl. Dermabond tape and sterile dressing were placed. The patient was extubated and transferred to recovery room in stable condition. Sponge and needle counts were correct at the end of the case. There were no complications. LIDIA / ANGIE /[id number]
--- NOTE | 2018-07-26 14:30 | CR ---
EXAMINATION: Left hip HISTORY: Arthroplasty COMPARISON: None TECHNIQUE: 3 images provided FINDINGS/IMPRESSION: Operative control films demonstrate placement of a left total hip hardware position and alignment appear normal.
[2018-07-26] MEDS: ceFAZolin 2 GM in Premix Bag 1 BAG IV SCH (15:47)
[2018-07-26] MEDS: Docusate Sodium 100 MG Cap PO SCH (20:55)
[2018-07-27] MEDS: Ketorolac 30 MG/ML SDV IVPUSH SCH (00:51)
[2018-07-27] MEDS: ceFAZolin 2 GM in Premix Bag 1 BAG IV SCH (01:09)
[2018-07-27 05:46] LABS: CHLORIDE,CL 104 mmol/L (98-107); SODIUM,NA 139 mmol/L (136-148)
[2018-07-27] MEDS ORDERED: Sodium Chloride 0.9% 10 ML Syringe FLUSH PRN (06:57)
[2018-07-27] MEDS ORDERED: Sodium Chloride 0.9% 2.5 ML Syringe FLUSH PRN (06:57)
--- NOTE | 2018-07-27 07:00 | PCM.SN ---
- Free Text/Narrative Note: Subjective: Patient is ambulating well. Is tolerating by mouth. No complaints. No chest pain or shortness of breath. No other issues Objective: Afebrile, vital signs stable Left hip dressing is clean/dry/intact with no surrounding erythema or swelling. There is no swelling distal. He has normal sensation and motor distally with palpable pedal pulse Shanti/plan: Postoperative day #1 left total hip arthroplasty - Full weightbearing and physical therapy. - Ecotrin SCDs for DVT prophylaxis - To home today. Follow-up in 2 weeks. He'll leave his dressing on.
--- NOTE | 2018-07-27 08:01 | PCM.CONSN ---
- General Info Date of Service: 07/27/18 Admission Dx/Problem (Free Text): Admission Diagnosis/Problem Admission Diagnosis/Problem Hip replacement planned - Patient Data Vitals - Most Recent: Last Vital Signs Temp 98.3 F 07/27/18 04:00 Pulse 89 07/27/18 04:00 Resp 16 07/27/18 04:00 BP 148/70 H 07/27/18 04:00 Pulse Ox 93 L 07/27/18 04:00 Weight - Most Recent: 94.347 kg I&O - Last 24 Hours: Intake & Output 07/26/18 07/27/18 07/27/18 22:59 06:59 14:59 Intake Total 826 900 Output Total 550 Balance 826 350 Lab Results Last 24 Hours: Laboratory Results - last 24 hr 07/26/18 07/26/18 07/27/18 Range/Units 10:55 10:55 05:12 WBC 15.04 H (4.0-11.0) K/uL RBC 4.59 (4.50-5.90) M/uL Hgb 13.0 11.8 L (13.0-17.0) g/dL Hct 38.2 35.6 L (38.0-50.0) % MCV 83.2 (80.0-98.0) fL MCH 28.3 (27.0-32.0) pg MCHC 34.0 (31.0-37.0) g/dL RDW Std Deviation 43.1 (28.0-62.0) fl RDW Coeff of Whit 14 (11.0-15.0) % Plt Count 328 (150-400) K/uL MPV 8.90 (7.40-12.00) fL Neut % (Auto) 63.2 (48.0-80.0) % Lymph % (Auto) 24.6 (16.0-40.0) % [place] % (Auto) 9.6 (0.0-15.0) % Eos % (Auto) 2.1 (0.0-7.0) % Baso % (Auto) 0.5 (0.0-1.5) % Neut # (Auto) 9.5 H (1.4-5.7) K/uL Lymph # (Auto) 3.7 H (0.6-2.4) K/uL [place] # (Auto) 1.4 H (0.0-0.8) K/uL Eos # (Auto) 0.3 (0.0-0.7) K/uL Baso # (Auto) 0.1 (0.0-0.1) K/uL Nucleated RBC % 0.0 /100WBC Nucleated RBCs # 0 K/uL Sodium 142 (136-148) mmol/L Potassium 4.7 (3.5-5.1) mmol/L Chloride 106 (98-107) mmol/L Carbon Dioxide 28.0 (21.0-32.0) mmol/L BUN 20 H (7.0-18.0) mg/dL Creatinine 1.2 (0.8-1.3) mg/dL Est Cr Clr Drug Dosing 64.13 mL/min Estimated GFR (MDRD) > 60.0 ml/min Glucose 108 H (74-106) mg/dL Calcium 8.9 (8.5-10.1) mg/dL 07/27/18 Range/Units 05:12 WBC (4.0-11.0) K/uL RBC (4.50-5.90) M/uL Hgb (13.0-17.0) g/dL Hct (38.0-50.0) % MCV (80.0-98.0) fL MCH (27.0-32.0) pg MCHC (31.0-37.0) g/dL RDW Std Deviation (28.0-62.0) fl RDW Coeff of Whit (11.0-15.0) % Plt Count (150-400) K/uL MPV (7.40-12.00) fL Neut % (Auto) (48.0-80.0) % Lymph % (Auto) (16.0-40.0) % [place] % (Auto) (0.0-15.0) % Eos % (Auto) (0.0-7.0) % Baso % (Auto) (0.0-1.5) % Neut # (Auto) (1.4-5.7) K/uL Lymph # (Auto) (0.6-2.4) K/uL [place] # (Auto) (0.0-0.8) K/uL Eos # (Auto) (0.0-0.7) K/uL Baso # (Auto) (0.0-0.1) K/uL Nucleated RBC % /100WBC Nucleated RBCs # K/uL Sodium 139 (136-148) mmol/L Potassium 4.1 (3.5-5.1) mmol/L Chloride 104 (98-107) mmol/L Carbon Dioxide 30.2 (21.0-32.0) mmol/L BUN 20 H (7.0-18.0) mg/dL Creatinine 1.1 (0.8-1.3) mg/dL Est Cr Clr Drug Dosing 69.95 mL/min Estimated GFR (MDRD) > 60.0 ml/min Glucose 121 H (74-106) mg/dL Calcium 8.3 L (8.5-10.1) mg/dL Med Orders - Current: Current Medications Hydrocodone Bitart/Acetaminophen ([place] 325-7.5 Mg) 1 - 2 tab PO Q4H PRN PRN Reason: Pain Last Admin: 07/26/18 22:50 Dose: 1 tab Al Hydroxide/Mg Hydroxide (Mag-Al Plus) 30 ml PO Q4H PRN PRN Reason: indigestion Albuterol (Proventil Neb Soln) 2.5 mg NEB ONETIME PRN PRN Reason: Wheezing Aspirin (Aspirin) 325 mg PO BID [facility] Atropine Sulfate (Atropine 1 Mg/Ml) 0.5 mg IVPUSH ASDIRECTED PRN PRN Reason: Hypo-perfusion Atropine Sulfate (Atropine 1 Mg/Ml) 1 mg IVPUSH ASDIRECTED PRN PRN Reason: Hypo-Perfusion Bisacodyl (Dulcolax) 10 mg RECTAL DAILY PRN PRN Reason: Constipation Celecoxib (Celebrex) 200 mg PO DAILY [facility] Dextrose/Water (Dextrose 50% In Water) 50 ml IVPUSH ASDIRECTED PRN PRN Reason: Hypoglycemia Diphenhydramine HCl (Benadryl) 25 - 50 mg PO Q6H PRN PRN Reason: Itching Docusate Sodium (Colace) 100 mg PO BID [facility] Last Admin: 07/26/18 20:55 Dose: 100 mg Epinephrine HCl (Adrenalin) 1 mg IVPUSH ASDIRECTED PRN PRN Reason: ACLS Guidelines Fentanyl (Sublimaze) 50 mcg IVPUSH Q5M PRN PRN Reason: Pain Lisinopril/HCTZ (Lisinopril-Hctz 10-12.5 Mg) 2 tab PO DAILY [facility] Hydromorphone HCl (Dilaudid) 0 mg IV Q3H PRN PRN Reason: SEVERE PAIN Last Admin: 07/26/18 13:05 Dose: 0.5 mg Cefazolin Sodium/Dextrose 2 gm (/ Premix) 50 mls @ 100 mls/hr IV ONETIME [facility] Last Admin: 07/27/18 00:50 Dose: 100 mls/hr Lactated Ringer's (Ringers, Lactated) 1,000 mls @ 100 mls/hr IV ASDIRECTED [facility] Last Admin: 07/26/18 22:51 Dose: 100 mls/hr Metoprolol Succinate (Toprol Xl) 100 mg PO DAILY PRN PRN Reason: does not take Naloxone HCl (Narcan) 0.1 mg IVPUSH ASDIRECTED PRN PRN Reason: Respiratory Depression Ondansetron HCl (Zofran) 4 mg IV Q6HR PRN PRN Reason: NAUSEA/VOMITING Last Admin: 07/26/18 13:51 Dose: 4 mg Glycopyrrolate/Formoterol Fum [ Bevespi Aerosphere Inhaler] 2 each INH BID PRN PRN Reason: Shortness of Breath Sodium Chloride (Saline Flush) 10 ml FLUSH ASDIRECTED PRN PRN Reason: Keep Vein Open Sodium Chloride (Saline Flush) 2.5 ml FLUSH ASDIRECTED PRN PRN Reason: Keep Vein Open Discontinued Medications Cefazolin Sodium (Ancef) Confirm Administered Dose 2 gm .ROUTE .STK-MED ONE Stop: 07/26/18 07:15 Fentanyl (Sublimaze) Confirm Administered Dose 100 mcg .ROUTE .STK-MED ONE Stop: 07/26/18 07:10 Sodium Chloride (Normal Saline) Confirm Administered Dose 20 mls @ as directed .ROUTE .STK-MED ONE Stop: 07/26/18 07:15 Cefazolin Sodium/Dextrose 2 gm (/ Premix) 50 mls @ 100 mls/hr IV Q8H [facility] Stop: 07/27/18 00:29 Last Admin: 07/27/18 01:09 Dose: Not Given Ketorolac Tromethamine (Toradol) 30 mg IVPUSH Q6H [facility] Stop: 07/27/18 01:01 Last Admin: 07/27/18 00:51 Dose: 30 mg Lidocaine (Xylocaine-Mpf 2%) Confirm Administered Dose 5 ml .ROUTE .STK-MED ONE Stop: 07/26/18 07:10 Midazolam HCl (Versed 1 Mg/Ml) Confirm Administered Dose 2 mg .ROUTE .STK-MED ONE Stop: 07/26/18 07:10 Morphine Sulfate (Morphine Sulfate) 1 - 3 mg IV Q3H PRN PRN Reason: Pain Last Admin: 07/26/18 10:26 Dose: 3 mg Octyl Cyanoacrylate (Dermabond Prineo) 1 applic TOP .STK-MED ONE Stop: 07/26/18 07:33 Phenylephrine HCl (Tam-Synephrine) Confirm Administered Dose 10 mg .ROUTE .STK- MED ONE Stop: 07/26/18 08:15 Propofol (Diprivan 20 Ml) Confirm Administered Dose 400 mg .ROUTE .STK-MED ONE Stop: 07/26/18 07:09 Tranexamic Acid (Cyklokapron) 2,000 mg IV ONETIME ONE Stop: 07/26/18 07:01 Last Admin: 07/26/18 11:21 Dose: Not Given Tranexamic Acid (Cyklokapron) Confirm Administered Dose 2,000 mg .ROUTE .STK- MED ONE Stop: 07/26/18 07:20 Consult PN Assessment/Plan Procedures: Procedures ASSAY OF FREE THYROXINE (03/29/18) ASSAY THYROID STIM HORMONE (03/29/18) CARDIOVASCULAR STRESS TEST (05/25/18) CO/MEMBANE DIFFUSE CAPACITY (04/11/18) COMPLETE CBC W/AUTO DIFF WBC (06/28/18) COMPREHEN METABOLIC PANEL (03/29/18) CULTURE OTHR SPECIMN AEROBIC (05/31/17) DRESS/DEBRID P-THICK BURN S (12/09/17) EMERGENCY DEPT VISIT (12/09/17) EMERGENCY DEPT VISIT (02/10/16) EMERGENCY DEPT VISIT (10/06/15) EMERGENCY DEPT VISIT (11/16/14) EVALUATION OF WHEEZING (04/11/18) GLYCOSYLATED HEMOGLOBIN TEST (06/28/18) HT MUSCLE IMAGE SPECT MULT (05/25/18) LIPID PANEL (03/29/18) METABOLIC PANEL TOTAL CA (06/28/18) PROTHROMBIN TIME (06/28/18) ROUTINE VENIPUNCTURE (06/28/18) THROMBOPLASTIN TIME PARTIAL (06/28/18) TTE W/DOPPLER COMPLETE (04/17/18) URINALYSIS AUTO W/SCOPE (06/28/18) X-RAY EXAM CHEST 2 VIEWS (03/29/18) X-RAY EXAM HIP UNI 2-3 VIEWS (05/05/17) (1) Smoker SNOMED Code(s): 75836155 Code(s): F17.200 - NICOTINE DEPENDENCE, UNSPECIFIED, UNCOMPLICATED Current Visit: Yes (2) Asplenia SNOMED Code(s): 147323996, 269952909 Code(s): Q89.01 - ASPLENIA (CONGENITAL) Current Visit: No (3) Hypertension SNOMED Code(s): 74686820 Code(s): I10 - ESSENTIAL (PRIMARY) HYPERTENSION Current Visit: No Qualifiers: Hypertension type: essential hypertension Qualified Code(s): I10 - Essential (primary) hypertension
[2018-07-27] MEDS ORDERED: Celecoxib 100 MG Cap PO SCH (09:00)
[2018-07-27] MEDS ORDERED: Aspirin 325 MG Tab PO SCH (09:00)
[2018-07-27] MEDS ORDERED: Lisinopril/Hydrochlorothiazide 10-12.5 MG Tab PO SCH (09:00)
[2018-07-27 09:02] VITALS: BP 166/103
[2018-07-27] MEDS: Acetaminophen/HYDROcodone 325-7.5 MG Tab PO PRN (09:02)
[2018-07-27] MEDS: Docusate Sodium 100 MG Cap PO SCH (09:04)
[2018-07-27] MEDS: Ondansetron 4 MG/2 ML SDV IV PRN (09:24)
--- NOTE | 2018-07-27 13:31 | PCM48HPAN ---
Post Anesthesia Note - EVALUATION WITHIN 48HRS OF ANESTHETIC Vital Signs in Normal Range: Yes Patient Participated in Evaluation: Yes Respiratory Function Stable: Yes Airway Patent: Yes Cardiovascular Function Stable: Yes Hydration Status Stable: Yes Pain Control Satisfactory: Yes Nausea and Vomiting Control Satisfactory: Yes Mental Status Recovered: Yes Resp Rate: 16
--- NOTE | 2018-07-28 07:19 | PCM.DCSUM1 ---
Discharge Summary - Hospital Course Brief History: Patient is admitted for elective hip replacement. Postoperatively he was admitted to the floor his pain was controlled, his diet was advanced, and he participated in physical therapy with weightbearing as tolerated. He did well postoperatively and was subsequently discharged home on postoperative day #1. He'll take aspirin for DVT prophylaxis. Distress and will change. He'll return to clinic in 2 weeks. Diagnosis: Stroke: No - Discharge Data Discharge Date: 07/28/18 Discharge Disposition: Home, Self-Care 01 Condition: Good - Patient Summary/Data Operative Procedure(s) Performed: left anterior total hip arthroplasty Consults: Consultations 07/26/18 09:20 Consult to Physician [CONS] Routine PT Evaluation and Treatment [CONS] Routine - Patient Instructions Diet: Usual Diet as Tolerated Activity: Apply Ice, Full Weight Bearing Driving, Other: may drive when not taking narcotics Showering/Bathing: May Shower Wound/Incision Care: Keep Operative Site/Wound Site Clean and Dry, Do NOT Change Dressing Notify Provider of: Fever, Increased Pain, Swelling and Redness, Drainage - Discharge Plan *PRESCRIPTION DRUG MONITORING PROGRAM REVIEWED*: No *COPY OF PRESCRIPTION DRUG MONITORING REPORT IN PATIENT SHONA: No Home Medications: Home Meds Glycopyrrolate/Formoterol Fum [Bevespi Aerosphere Inhaler] 2 puff INH BID PRN [History] Lisinopril/Hydrochlorothiazide [Lisinopril-Hctz 20-25 mg Tab] 20 - 25 mg PO DAILY 07/24/18 [History] Metoprolol Succinate 100 mg PO DAILY PRN 07/24/18 [History] Sildenafil Citrate [Sildenafil] 50 mg PO ASDIRECTED PRN 07/24/18 [History] Patient Handouts: Acetaminophen; Hydrocodone tablets or capsules, Total Hip Replacement, Care After, Aspirin, ASA oral tablets, Docusate capsules Referrals: Selma Jarrell PA [Physician Camp Advisor] - 08/08/18 2:20 pm - Discharge Summary/Plan Comment DC Time >30 min.: No - Patient Data Vitals - Most Recent: Last Vital Signs Temp 36.6 C 07/27/18 08:55 Pulse 94 07/27/18 08:55 Resp 16 07/27/18 13:31 BP 166/103 H 07/27/18 08:55 Pulse Ox 94 L 07/27/18 08:55 Weight - Most Recent: 94.347 kg Med Orders - Current: Current Medications Discontinued Medications Hydrocodone Bitart/Acetaminophen ([place] 325-7.5 Mg) 1 - 2 tab PO Q4H PRN PRN Reason: Pain Last Admin: 07/27/18 09:02 Dose: 1 tab Al Hydroxide/Mg Hydroxide (Mag-Al Plus) 30 ml PO Q4H PRN PRN Reason: indigestion Albuterol (Proventil Neb Soln) 2.5 mg NEB ONETIME PRN PRN Reason: Wheezing Aspirin (Aspirin) 325 mg PO BID [facility] Last Admin: 07/27/18 09:04 Dose: 325 mg Atropine Sulfate (Atropine 1 Mg/Ml) 0.5 mg IVPUSH ASDIRECTED PRN PRN Reason: Hypo-perfusion Atropine Sulfate (Atropine 1 Mg/Ml) 1 mg IVPUSH ASDIRECTED PRN PRN Reason: Hypo-Perfusion Bisacodyl (Dulcolax) 10 mg RECTAL DAILY PRN PRN Reason: Constipation Cefazolin Sodium (Ancef) Confirm Administered Dose 2 gm .ROUTE .STK-MED ONE Stop: 07/26/18 07:15 Celecoxib (Celebrex) 200 mg PO DAILY [facility] Last Admin: 07/27/18 09:04 Dose: 200 mg Dextrose/Water (Dextrose 50% In Water) 50 ml IVPUSH ASDIRECTED PRN PRN Reason: Hypoglycemia Diphenhydramine HCl (Benadryl) 25 - 50 mg PO Q6H PRN PRN Reason: Itching Docusate Sodium (Colace) 100 mg PO BID [facility] Last Admin: 07/27/18 09:04 Dose: 100 mg Epinephrine HCl (Adrenalin) 1 mg IVPUSH ASDIRECTED PRN PRN Reason: ACLS Guidelines Fentanyl (Sublimaze) Confirm Administered Dose 100 mcg .ROUTE .STK-MED ONE Stop: 07/26/18 07:10 Fentanyl (Sublimaze) 50 mcg IVPUSH Q5M PRN PRN Reason: Pain Lisinopril/HCTZ (Lisinopril-Hctz 10-12.5 Mg) 2 tab PO DAILY [facility] Last Admin: 07/27/18 09:04 Dose: 2 tab Hydromorphone HCl (Dilaudid) 0 mg IV Q3H PRN PRN Reason: SEVERE PAIN Last Admin: 07/26/18 13:05 Dose: 0.5 mg Cefazolin Sodium/Dextrose 2 gm (/ Premix) 50 mls @ 100 mls/hr IV ONETIME [facility] Last Admin: 07/27/18 00:50 Dose: 100 mls/hr Sodium Chloride (Normal Saline) Confirm Administered Dose 20 mls @ as directed .ROUTE .STK-MED ONE Stop: 07/26/18 07:15 Lactated Ringer's (Ringers, Lactated) 1,000 mls @ 100 mls/hr IV ASDIRECTED [facility] Last Admin: 07/26/18 22:51 Dose: 100 mls/hr Cefazolin Sodium/Dextrose 2 gm (/ Premix) 50 mls @ 100 mls/hr IV Q8H [facility] Stop: 07/27/18 00:29 Last Admin: 07/27/18 01:09 Dose: Not Given Ketorolac Tromethamine (Toradol) 30 mg IVPUSH Q6H [facility] Stop: 07/27/18 01:01 Last Admin: 07/27/18 00:51 Dose: 30 mg Lidocaine (Xylocaine-Mpf 2%) Confirm Administered Dose 5 ml .ROUTE .STK-MED ONE Stop: 07/26/18 07:10 Metoprolol Succinate (Toprol Xl) 100 mg PO DAILY PRN PRN Reason: does not take Midazolam HCl (Versed 1 Mg/Ml) Confirm Administered Dose 2 mg .ROUTE .STK-MED ONE Stop: 07/26/18 07:10 Morphine Sulfate (Morphine Sulfate) 1 - 3 mg IV Q3H PRN PRN Reason: Pain Last Admin: 07/26/18 10:26 Dose: 3 mg Naloxone HCl (Narcan) 0.1 mg IVPUSH ASDIRECTED PRN PRN Reason: Respiratory Depression Octyl Cyanoacrylate (Dermabond Prineo) 1 applic TOP .STK-MED ONE Stop: 07/26/18 07:33 Ondansetron HCl (Zofran) 4 mg IV Q6HR PRN PRN Reason: NAUSEA/VOMITING Last Admin: 07/27/18 09:24 Dose: 4 mg Glycopyrrolate/Formoterol Fum [ Bevespi Aerosphere Inhaler] 2 each INH BID PRN PRN Reason: Shortness of Breath Phenylephrine HCl (Tam-Synephrine) Confirm Administered Dose 10 mg .ROUTE .STK- MED ONE Stop: 07/26/18 08:15 Propofol (Diprivan 20 Ml) Confirm Administered Dose 400 mg .ROUTE .STK-MED ONE Stop: 07/26/18 07:09 Sodium Chloride (Saline Flush) 10 ml FLUSH ASDIRECTED PRN PRN Reason: Keep Vein Open Sodium Chloride (Saline Flush) 2.5 ml FLUSH ASDIRECTED PRN PRN Reason: Keep Vein Open Tranexamic Acid (Cyklokapron) 2,000 mg IV ONETIME ONE Stop: 07/26/18 07:01 Last Admin: 07/26/18 11:21 Dose: Not Given Tranexamic Acid (Cyklokapron) Confirm Administered Dose 2,000 mg .ROUTE .STK- MED ONE Stop: 07/26/18 07:20
== END 2018-07-27 11:00 | disposition home or self-care (01) | DRG 301 ==
LOC: MW.MS 06:50
PROVIDERS: ADMIT Orthopaedic Surgery; ATTEND Orthopaedic Surgery
PROC: 0SRB04A Replacement of Left Hip Joint with Ceramic on Polyethylene Synthetic Substitute, Uncemented, Open Approach (ICD-10-PCS; principal; 2018-07-26)
DX: M16.12 Unilateral primary osteoarthritis, left hip (principal); E66.9 Obesity, unspecified; I10 Essential (primary) hypertension; F17.210 Nicotine dependence, cigarettes, uncomplicated; F32.9 Major depressive disorder, single episode, unspecified; H91.90 Unspecified hearing loss, unspecified ear; J44.9 Chronic obstructive pulmonary disease, unspecified; Z79.899 Other long term (current) drug therapy; Z86.14 Personal history of Methicillin resistant Staphylococcus aureus infection; Z87.442 Personal history of urinary calculi; Z90.81 Acquired absence of spleen; Z68.32 Body mass index [BMI] 32.0-32.9, adult
CPT/HCPCS: 36415; 76000; 76000-26; 80048; 85014; 85018; 85025; 97110-GP; 97161-GP; 97530-GP; A9270-GY; C1713; C1776; J0690; J1170; J1885; J2001; J2250; J2270; J2370; J2405; J2704; J3010; J7120

== ENCOUNTER 2020-05-19 07:51 | Emergency (ER) | payer BC ==
--- NOTE | 2020-05-19 07:53 | EDM.PDOC ---
ED HPI GENERAL MEDICAL PROBLEM - General Stated Complaint: POSSIBLE BROKEN RIGHT WRIST Time Seen by Provider: 05/19/20 07:51 Source of Information: Reports: Patient History Limitations: Reports: No Limitations - History of Present Illness INITIAL COMMENTS - FREE TEXT/NARRATIVE: 60-year-old male presents for injury to right wrist. He states that he fell injuring it 1 month ago. He landed on b/l outstretched arms and had pain in both wrists but pain in R wrist persists. He notes h/o hypertension and medication non-compliance. He denies CP, SOB, decreased urination. Right Wrist Pain Score (Numeric/FACES): 8 - Related Data Allergies Allergy/AdvReac Type Severity Reaction Status Date / Time No Known Allergies Allergy Verified 05/19/20 07:58 Home Meds: Home Meds Glycopyrrolate/Formoterol Fum [Bevespi Aerosphere Inhaler] 2 puff INH BID PRN 07/24/18 [History] Lisinopril/Hydrochlorothiazide [Lisinopril-Hctz 20-25 mg Tab] 20 - 25 mg PO DAILY 07/24/18 [History] Metoprolol Succinate 100 mg PO DAILY PRN 07/24/18 [History] Sildenafil Citrate 50 mg PO ASDIRECTED PRN 07/24/18 [History] Ibuprofen [Motrin] 600 mg PO Q6H PRN #12 tab 05/19/20 [Rx] Past Medical History - Past Health History Medical/Surgical History: Denies Medical/Surgical History HEENT History: Reports: Hard of Hearing Other HEENT History: states has recently had double vision- has had it checked "by an eye doctor" Cardiovascular History: Reports: Hypertension. Denies: Afib, Blood Clots/VTE/DVT, CAD, High Cholesterol, [place] Other Cardiovascular History: does not take Metoprolol, only Lisinopril Respiratory History: Reports: None Other Respiratory History: was given an inhaler for "breathing problems" but does not use it. Gastrointestinal History: Reports: Other (See Below) Other Gastrointestinal History: Occasional heartburn- take OTC Nexium Genitourinary History: Reports: Renal Calculus Other Genitourinary History: hx of kidney stones- passed them Musculoskeletal History: Reports: Arthritis, Fracture Other Musculoskeletal History: hx of fx toe on left foot and fx ribs Neurological History: Reports: None Psychiatric History: Reports: None Endocrine/Metabolic History: Reports: Obesity/BMI 30+ Hematologic History: Reports: Blood Transfusion(s) Immunologic History: Reports: Other (See Below) Other Immunologic History: hx of MRSA Oncologic (Cancer) History: Reports: None Dermatologic History: Reports: None - Infectious Disease History Infectious Disease History: Reports: Chicken Pox, Measles, MRSA, Mumps - Past Surgical History GI Surgical History: Reports: Other (See Below) Other GI Surgeries/Procedures: hx of Splenectomy Musculoskeletal Surgical History: Reports: Other (See Below) (knee infection) Social & Family History - Family History Family Medical History: No Pertinent Family History - Caffeine Use Caffeine Use: Reports: Coffee, Soda - Living Situation & Occupation Living situation: Reports: Occupation: Employed ED ROS GENERAL - Review of Systems Review Of Systems: Comprehensive ROS is negative, except as noted in HPI. ED EXAM, GENERAL - Physical Exam Exam: See Below Exam Limited By: No Limitations General Appearance: Alert, WD/WN, No Apparent Distress Throat/Mouth: Normal Voice, No Airway Compromise Head: Atraumatic, Normocephalic Neck: Normal Inspection Respiratory/Chest: No Respiratory Distress, No Accessory Muscle Use, Other ( Speaks in full sentences) Cardiovascular: Normal Peripheral Pulses Extremities: Normal Inspection, Normal Range of Motion, Non-Tender, Normal Capillary Refill Neurological: Alert, Normal Gait Psychiatric: Normal Affect, Normal Mood Skin Exam: Warm, Dry, Intact, Normal Color Course - Vital Signs Last Recorded V/S: Last Vital Signs Temp 97.2 F 05/19/20 07:58 Pulse 97 05/19/20 07:58 Resp 18 05/19/20 07:58 BP 218/108 H 05/19/20 07:58 Pulse Ox 95 05/19/20 07:58 - Re-Assessments/Exams Free Text/Narrative Re-Assessment/Exam: 05/19/20 07:53 We will get x-ray imaging of right wrist. We will follow up results and disposition accordingly. Patient informed to f/u with PMD for hypertension management. 05/19/20 08:50 X-ray with soft tissue swelling and evidence of osteoarthritis. Will discharge patient with referral to primary care physician. Departure - Departure Time of Disposition: 08:51 Disposition: Home, Self-Care 01 Condition: Good Clinical Impression: Arthritis - Discharge Information Prescriptions: Ibuprofen [Motrin] 600 mg PO Q6H PRN #12 tab PRN Reason: Pain Referrals: PCP,None [Primary Care Provider] - Additional Instructions: The following information is given to patients seen in the emergency department who are being discharged to home. This information is to outline your options for follow-up care. We provide all patients seen in our emergency department with a follow-up referral. The need for follow-up, as well as the timing and circumstances, are variable depending upon the specifics of your emergency department visit. If you don't have a primary care physician on staff, we will provide you with a referral. We always advise you to contact your personal physician following an emergency department visit to inform them of the circumstance of the visit and for follow-up with them and/or the need for any referrals to a consulting specialist. The emergency department will also refer you to a specialist when appropriate. This referral assures that you have the opportunity for follow-up care with a specialist. All of these measure are taken in an effort to provide you with optimal care, which includes your follow-up. Under all circumstances we always encourage you to contact your private physician who remains a resource for coordinating your care. When calling for follow-up care, please make the office aware that this follow-up is from your recent emergency room visit. If for any reason you are refused follow-up, please contact the [facility] Emergency Department at and asked to speak to the emergency department charge nurse. Please follow up with your primary care physician. If you do not have a primary care physician, see below: [facility] [address] [place] [id number] [facility] [address] [place] [address] Orthopedics: [facility] Professional Building [address] [facility], [address] [place] [address] Sepsis Event Note (ED) - Focused Exam Vital Signs: Vital Signs Temp Pulse Resp BP BP Pulse Ox 05/19/20 07:58 97.2 F 97 18 218/108 H 205/120 H 95
--- NOTE | 2020-05-19 08:47 | CR ---
INDICATION: Injury 1 month ago; persistent pain right wrist. COMPARISON: None. TECHNIQUE: Three-view study right wrist. FINDINGS: No evidence of acute fracture or dislocation. Diffuse soft tissue swelling surrounding the right wrist. Evidence of osteoarthritis involving the radiocarpal articulation and the intercarpal articulations. IMPRESSION: 1. No acute fracture or dislocation. 2. Osteoarthritis. 3. Diffuse soft tissue swelling. Dictated by Lorena Christine MD @ May 19 2020 8:44AM Signed by Dr. Lorena Christine @ May 19 2020 8:45AM
[2020-05-19 09:02] VITALS: BP 200/133; PULSE 93
== END 2020-05-19 09:02 | disposition home or self-care (01) ==
LOC: MW.ED 07:51
DX: M19.90 Unspecified osteoarthritis, unspecified site (principal); I10 Essential (primary) hypertension; E66.9 Obesity, unspecified; Z68.32 Body mass index [BMI] 32.0-32.9, adult; Z79.899 Other long term (current) drug therapy
CPT/HCPCS: 73110-26-RT; 73110-RT; 99282; 99283-25

== ENCOUNTER 2021-07-14 11:20 | Observation (INO) | payer BC ==
[2021-07-14 13:00] LABS: CORONAVIRUS COVID-19 NAA NEGATIVE (NEGATIVE); INFLUENZA A NAA NEGATIVE (NEGATIVE); INFLUENZA B NAA NEGATIVE (NEGATIVE)
[2021-07-14] MEDS ORDERED: Albuterol/Ipratropium 3.0-0.5 MG/3 ML Neb Soln NEB ONE (13:02)
[2021-07-14] MEDS ORDERED: methylPREDNISolone Sodium Succinate 125 MG/2 ML SDV IVPUSH ONE (13:03)
[2021-07-14] MEDS ORDERED: Levofloxacin/Dextrose 5%-Water 750 MG in Premix Bag 1 BAG IV ONE (13:53)
[2021-07-14 14:22] LABS: BLOOD UREA NITROGEN,BUN 28 mg/dL (7.0-18.0); CARBON DIOXIDE,CO2 24.7 mmol/L (21.0-32.0); CHLORIDE,CL 99 mmol/L (98-107); GLUCOSE RANDOM 144 mg/dL (74-106); POTASSIUM,K 3.2 mmol/L (3.5-5.1); SODIUM,NA 136 mmol/L (136-148)
[2021-07-14] MEDS ORDERED: Sodium Chloride 0.9% 1,000 ML IV ONE (14:34)
[2021-07-14] MEDS ORDERED: Iopamidol 755 MG/ML 500 ML Multipack Bottle IVPUSH STA (14:46)
[2021-07-14] MEDS ORDERED: Potassium Chloride 20 MEQ Tab.ER PO ONE (16:00)
[2021-07-14] MEDS ORDERED: Metoprolol Succinate 50 MG Tab.ER PO ONE (16:00)
[2021-07-14] MEDS: Albuterol/Ipratropium 3.0-0.5 MG/3 ML Neb Soln NEB SCH (19:34)
[2021-07-14] MEDS ORDERED: Metoprolol Succinate 50 MG Tab.ER PO PRN (21:29)
[2021-07-15] MEDS: Albuterol/Ipratropium 3.0-0.5 MG/3 ML Neb Soln NEB SCH ×2 (00:40→07:46)
[2021-07-15 07:14] LABS: CARBON DIOXIDE,CO2 21.8 mmol/L (21.0-32.0); POTASSIUM,K 4.5 mmol/L (3.5-5.1)
[2021-07-15] MEDS ORDERED: predniSONE 20 MG Tab PO SCH (08:00)
[2021-07-15 08:49] VITALS: BP 179/99; PULSE 98
[2021-07-15] MEDS ORDERED: Hydrochlorothiazide 25 MG Tab PO SCH (09:00)
== END 2021-07-15 11:00 | disposition home or self-care (01) ==
LOC: MW.ED 11:20 → MW.MS 16:04
PROVIDERS: ADMIT Internal Medicine; ATTEND Internal Medicine
DX: J20.9 Acute bronchitis, unspecified (principal); I10 Essential (primary) hypertension; E66.9 Obesity, unspecified; N28.9 Disorder of kidney and ureter, unspecified; I42.9 Cardiomyopathy, unspecified; Z79.899 Other long term (current) drug therapy; Z98.890 Other specified postprocedural states; Z87.891 Personal history of nicotine dependence; Z20.822 Contact with and (suspected) exposure to COVID-19; Z68.33 Body mass index [BMI] 33.0-33.9, adult
CPT/HCPCS: 0240U; 36415; 71045; 71275; 80048; 80053; 83605; 83880; 84484; 85025; 85379; 87040; 93005; 94640; 96365; 96366; 96375; 99284; A9270; G0378; J1956; J2930; J7030; Q9967; 99217; 99218; J7620-GY

== ENCOUNTER 2022-05-27 13:55 | Emergency (ER) | payer BC ==
[2022-05-27] MEDS ORDERED: Sodium Chloride 0.9% 10 ML Syringe FLUSH PRN (16:23)
[2022-05-27] MEDS ORDERED: Sodium Chloride 0.9% 2.5 ML Syringe FLUSH PRN (16:23)
[2022-05-27] MEDS ORDERED: amLODIPine 5 MG Tab PO ONE (16:24)
[2022-05-27] MEDS ORDERED: cloNIDine 0.1 MG Tab PO ONE (16:24)
[2022-05-27 17:33] LABS: CARBON DIOXIDE,CO2 31.2 mmol/L (21.0-32.0); POTASSIUM,K 4.2 mmol/L (3.5-5.1)
[2022-05-27 17:45] LABS: CORONAVIRUS COVID-19 NAA NEGATIVE (NEGATIVE); INFLUENZA A NAA NEGATIVE (NEGATIVE); INFLUENZA B NAA NEGATIVE (NEGATIVE)
[2022-05-27] MEDS ORDERED: Azithromycin 250 MG Tab PO ONE (18:57)
[2022-05-27 19:39] VITALS: BP 176/110; PULSE 86
== END 2022-05-27 19:37 | disposition home or self-care (01) ==
LOC: MW.ED 13:55
DX: K40.90 Unilateral inguinal hernia, without obstruction or gangrene, not specified as recurrent (principal); J40 Bronchitis, not specified as acute or chronic; N50.89 Other specified disorders of the male genital organs; I10 Essential (primary) hypertension; M19.90 Unspecified osteoarthritis, unspecified site; E66.9 Obesity, unspecified; Z68.33 Body mass index [BMI] 33.0-33.9, adult; Z79.899 Other long term (current) drug therapy; Z20.822 Contact with and (suspected) exposure to COVID-19
CPT/HCPCS: 0240U; 36415; 71045; 74176; 76870; 80053; 81001; 83880; 84484; 85025; 87086; 93005; 93976; 99284; A9270; J3490; 93010

== ENCOUNTER 2022-06-04 16:28 | Emergency (ER) | payer BC ==
[2022-06-04] MEDS ORDERED: Sodium Chloride 0.9% 10 ML Syringe FLUSH PRN (17:01)
[2022-06-04] MEDS ORDERED: Sodium Chloride 0.9% 2.5 ML Syringe FLUSH PRN (17:01)
[2022-06-04] MEDS ORDERED: Labetalol 100 MG/20 ML MDV IVPUSH ONE (17:03)
[2022-06-04 17:53] LABS: BLOOD UREA NITROGEN,BUN 19 mg/dL (7.0-18.0); CARBON DIOXIDE,CO2 27.6 mmol/L (21.0-32.0); CHLORIDE,CL 100 mmol/L (98-107); GLUCOSE RANDOM 136 mg/dL (74-106); POTASSIUM,K 3.6 mmol/L (3.5-5.1); SODIUM,NA 138 mmol/L (136-148)
[2022-06-04 17:54] LABS: ESTIMATED GFR 52 mL/min (>60)
[2022-06-04] MEDS ORDERED: Magnesium Sulfate/Water 2 GM in Premix Bag 1 BAG IV ONE (18:01)
[2022-06-04 18:30] VITALS: BP 154/102; PULSE 85
== END 2022-06-04 18:50 ==
LOC: MW.ED 16:28
DX: I63.9 Cerebral infarction, unspecified (principal); I10 Essential (primary) hypertension; E66.9 Obesity, unspecified; Z68.32 Body mass index [BMI] 32.0-32.9, adult; Z20.822 Contact with and (suspected) exposure to COVID-19
CPT/HCPCS: 36415; 70450; 70496; 70498; 71045; 80053; 80307; 83605; 84484; 85025; 85610; 87635; 93005; 96365; 96375; 99285; J3475; J3490; 93010; U0002

== ENCOUNTER 2023-08-08 04:38 | Emergency (ER) | payer BC ==
[2023-08-08 05:14] LABS: BASOPHILS ABSOLUTE AUTO 0.11 K/uL (0.00-0.20); EOSINOPHILS PERCENT AUTO 1.8 % (0.0-6.0); HEMATOCRIT 40.7 % (42.0-52.0); HEMOGLOBIN 13.7 g/dL (14.0-18.0); IMMATURE GRAN ABSOLUTE AUTO 0.02 K/uL (0.00-0.05); IMMATURE GRAN PERCENT AUTO 0.2 % (0.0-0.4); LYMPHOCYTES ABSOLUTE AUTO 3.47 K/uL (1.00-4.80); LYMPHOCYTES PERCENT AUTO 31.3 % (24.0-44.0); MEAN CORPUSCULAR HEMOGLOBIN 27.5 pg (28.0-32.0); MEAN CORPUSCULAR HGB CONC 33.7 g/dL (32.0-36.0); MEAN CORPUSCULAR VOLUME 81.7 fL (83.0-99.0); MEAN PLATELET VOLUME 8.8 fL (9.4-12.4); MONOCYTES ABSOLUTE AUTO 1.39 K/uL (0.00-0.80); MONOCYTES PERCENT AUTO 12.5 % (0.0-8.0); NEUTROPHILS ABSOLUTE AUTO 5.91 K/uL (1.80-7.70); NEUTROPHILS PERCENT AUTO 53.2 % (41.0-71.0); PLATELET COUNT,PLT 360 K/uL (150-400); RED BLOOD CELL COUNT 4.98 M/uL (4.52-5.90)
[2023-08-08] MEDS: Lisinopril 10 MG Tab PO ONE (05:16)
[2023-08-08 05:37] LABS: ALBUMIN 3.9 g/dL (3.4-5.0); BILIRUBIN TOTAL 0.3 mg/dL (0.2-1.0); CALCIUM 9.1 mg/dL (8.5-10.1); CARBON DIOXIDE,CO2 26.1 mmol/L (21.0-32.0); CREATININE 1.6 mg/dL (0.8-1.3); EST CRCL DRUG DOSING (CG) 43.61 mL/min; POTASSIUM,K 4.1 mmol/L (3.5-5.1); PROTEIN TOTAL,TP 7.7 g/dL (6.4-8.2)
[2023-08-08 06:15] VITALS: BP 198/115; PULSE 98
== END 2023-08-08 06:14 ==
LOC: MW.ED 04:38
DX: I10 Essential (primary) hypertension (principal); F17.210 Nicotine dependence, cigarettes, uncomplicated
CPT/HCPCS: 36415; 80053; 84484; 85025; 93005; 99283; A9270; 93010

== ENCOUNTER 2023-08-08 15:02 | Emergency (ER) | payer BC ==
[2023-08-08] MEDS: Lisinopril 10 MG Tab PO ONE (16:04)
[2023-08-08 16:42] VITALS: BP 164/99; PULSE 71
== END 2023-08-08 16:40 ==
LOC: MW.ED 15:02
DX: I10 Essential (primary) hypertension (principal); E66.9 Obesity, unspecified; Z79.899 Other long term (current) drug therapy; Z68.32 Body mass index [BMI] 32.0-32.9, adult
CPT/HCPCS: 99283; A9270

== ENCOUNTER 2023-11-04 22:43 | Emergency (ER) | payer BC ==
[2023-11-04 23:07] VITALS: PULSE 93
[2023-11-04] MEDS: Lisinopril 10 MG Tab PO ONE (23:26)
[2023-11-04 23:27] VITALS: BP 181/103
== END 2023-11-04 23:43 ==
LOC: MW.ED 22:43
DX: Z02.89 Encounter for other administrative examinations (principal); E66.9 Obesity, unspecified; Z68.31 Body mass index [BMI] 31.0-31.9, adult
CPT/HCPCS: 99283; A9270